=== PATIENT | male | born 1965 | race Caucasian/White ===

== ENCOUNTER → 2016-12-16 | Outpatient (CLI) | payer BC ==
[~2016-12-16] MED LIST: ACCUPRIL; AGM875T PO; ATOR80TA76 PO; HYDR-3812 PO; INSULIN PUMP; LEVO50TA6 PO; LEVOTHYROXINE; PRAVACHOL; QUIN40TA PO; TRAZ100T92 PO; VENL150C PO; VIT D
--- OUTSIDE RECORDS SUMMARY | 2016-12-16 14:24 | XMS REPORT | Continuity of Care Document ---
Author Author [facility] Organization [facility] Address Unknown Phone Unavailable Care Team Providers Care Reference Assistant Name Role Phone FRANKIE ALBRIGHT DO PCP Insurance Providers Payer Name Policy Number Subscriber Name Relationship [employer] [id number] Lebron Hoyt Self / Same As Patient Advance Directives Directive Response Recorded Date/Time Advance Directives No 10/07/16 12:30pm Health Care Power of Film Sound Engineer No 10/07/16 12:30pm Organ Donor Yes 10/07/16 12:30pm Resuscitation Status Full Code 10/07/16 12:30pm Problems No problem information available. Medications Current Home Medications Medication Dose Units Route Directions Days/Qty Instructions Start Date [Insulin Pump] 05/27/09 Atorvastatin Calcium 80 Mg 80 Mg Oral Daily 09/27/16 Quinapril Hcl 40 Mg 40 Mg Oral Daily 09/27/16 Levothyroxine Sodium 50 Mcg 50 Mcg Oral Daily 09/27/16 Venlafaxine Hcl 150 Mg 150 Mg Oral Daily 09/27/16 Trazodone Hcl 100 Mg 200 Mg Oral Bedtime take 2 (100mg) tabs 09/27/16 Hydrocodone/Acetaminophen 1 Each 1-2 Tab Oral 4-6HR as needed for Pain 20 10/07/16 Past Home Medications Medication Directions Ordered Status Pravachol , 05/27/09 Discontinued Accupril , 05/27/09 Discontinued Levothyroxine , 05/27/09 Discontinued [Vit D Supp] , 05/27/09 Discontinued Amoxicillin/Clavulanate Potassium 1 Tab Tablet, 1 Tab Oral Twice A Day Discontinued Social History Social History Problem Response Recorded Date/Time Alcohol Use Denies Use 10/07/2016 12:30pm Recreational Drug Use No 10/07/2016 12:30pm Recent Foreign Travel No 10/07/2016 12:26pm Recent Infectious Disease Exposure No 10/07/2016 12:26pm Smoking Status Never a Smoker 10/07/2016 12:30pm Recent Hopitalizations No 10/07/2016 12:30pm Query Response Start Date Stop Date Smoking Status Never a Smoker Hospital Discharge Instructions Patient Instructions Physician Instructions New, Converted or Re-Newed RX: RX on Chart Plan of Care/Instructions/FU: dressings off in 48 hours. Follow-up when necessary.. No stitches to be removed. Activity as Tolerated: Yes Discharge Diet: ADA Diet Care Plan Patient Instructions:: dressings off in 48 hours. Follow-up when necessary.. No stitches to beremoved. Plan of Care Discharge Date 10/07/16 1:25pm Instructions/Education Provided SEBACEOUS CYST Surgical Wound (DC) Prescriptions See Medication Section Functional Status No functional status results. Allergies, Adverse Reactions, Alerts Allergen Type Severity Reaction Status Last Updated NKANo Known Allergies Allergy Mild Active 05/27/09 Immunizations No immunization records. Vital Signs Acute Vital Signs Vital Response Date/Time Temperature (Fahrenheit) 97.8 degrees F (97.6 - 99.5) 10/07/2016 1:25pm Temperature (Calculated Celsius) 36.69870 degrees C (36.4 - 37.5) 10/07/2016 1:05pm Temperature Source Temporal 10/07/2016 1:25pm Pulse Rate (adult) 81 bpm (60 - 90) 10/07/2016 1:25pm Respiratory Rate 18 bpm (12 - 24) 10/07/2016 1:25pm O2 Sat by Pulse Oximetry 97 % (88 - 100) 10/07/2016 1:25pm Blood Pressure 157/99 mm Hg 10/07/2016 1:25pm Pain Numeric Pain Scale 0-No Pain 10/07/2016 1:25pm Pain Intensity 0 10/07/2016 1:05pm Height (Feet) 6 feet 10/07/2016 12:32pm Height (Inches) 1.00 inches 10/07/2016 12:32pm Height (Calculated Centimeters) 185.621021 cm 10/07/2016 12:32pm Weight (Pounds) 245 pounds 10/07/2016 12:32pm Weight (Ounces) 6.0 oz 10/07/2016 12:32pm Weight (Calculated Grams) 787322.23 gm 10/07/2016 12:32pm Weight (Calculated Kilograms) 111.607960 kilograms 10/07/2016 12:32pm Calculated BMI 32.4 10/07/2016 12:32pm Results Pending Laboratory Results Test Name Collection Date/Time Procedures Procedure Status Date Provider(s) Excision of epidermal inclusion cyst Active 10/07/16 LINH ZURITA MD Encounters Encounter Location Arrival/Admit Date Discharge/Depart Date Attending Provider Departed [facility] 10/07/16 11:56am 10/07/16 1:25pm LINH ZURITA MD Departed Clinic [facility] 09/27/16 5:51am 09/27/16 12: 42pm LINH ZURITA MD
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
== END ==
LOC: RAD 14:20
PROVIDERS: ATTEND Chiropractor
DX: M51.36 Other intervertebral disc degeneration, lumbar region (principal)
CPT/HCPCS: 72100

== ENCOUNTER → 2019-03-22 | Outpatient (CLI) | payer BC ==
[~2019-03-22] MED LIST changes: +ACHD5005 PO; -HYDR-3812 PO; +TRAZ-190 PO; -TRAZ100T92 PO
--- NOTE | 2019-03-22 17:21 | Diagnostic Imaging Report ---
INDICATION: Low back pain. EXAMINATION: AP view of the pelvis and two views of each hip were obtained. FINDINGS: Pelvic ring is intact. Hips are symmetric. Joint spaces are well maintained. Articular surfaces are smooth. IMPRESSION: Negative pelvis and bilateral hips. Dictated by: Dictated on workstation # [id number]
--- NOTE | 2019-03-22 17:29 | Diagnostic Imaging Report ---
INDICATION: Back and hip pain. FINDINGS: Lumbar statures are normal. No fracture. Disc spaces are preserved. No acute endplate irregularity. Asymmetric transitional anatomy at the S1 segment developmental and chronic. IMPRESSION: 1. Stable lumbar spine films with no acute finding. 2. Not mentioned above, there are arthritic changes to the bilateral hips appearing unchanged. Dictated by: Dictated on workstation # [id number]
== END ==
LOC: RAD 13:58
PROVIDERS: ATTEND Chiropractor
DX: M16.0 Bilateral primary osteoarthritis of hip (principal); M54.5 Low back pain
CPT/HCPCS: 72100; 73523

== ENCOUNTER 2020-03-23 17:33 | Emergency (ER) | payer BC ==
[~2020-03-23] VITALS: Ht 185.4 cm; Wt 114.7 kg
[~2020-03-23 17:33] MED LIST changes: -TRAZ-190 PO; +TRAZ-227 PO
[2020-03-23] MEDS ORDERED: RX-HYDROCODONE/APAP 5/325 MG #4 TAB PK PO PRN (17:45)
[2020-03-23] MEDS ORDERED: TETANUS,DIPTH,PERTUSS P/F (BOOSTRIX) 0.5 ML VIAL IM ONE (17:45)
[2020-03-23] MEDS ORDERED: cefTRIAXone 1,000 MG/2.86 ml vial (IM ONLY) IM SCH (17:45)
[2020-03-23] MEDS ORDERED: LIDOCAINE 1% INJ 20 ML 20 ML VIAL INJ ONE ×2 (17:45)
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
[2020-03-23] MEDS ORDERED: CEPH-507 PO (18:00)
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
[2020-03-23] MEDS ORDERED: HYDR-83 PO (18:46)
[2020-03-23 18:52] VITALS: BP 147/91
== END 2020-03-23 18:52 | disposition home or self-care (01) ==
LOC: EDUNIT# 17:33 → ER 17:34
DX: S92.334A Nondisplaced fracture of third metatarsal bone, right foot, initial encounter for closed fracture (principal); S92.324A Nondisplaced fracture of second metatarsal bone, right foot, initial encounter for closed fracture; S91.311A Laceration without foreign body, right foot, initial encounter; I10 Essential (primary) hypertension; E11.9 Type 2 diabetes mellitus without complications; F32.9 Major depressive disorder, single episode, unspecified; E03.9 Hypothyroidism, unspecified; Z23 Encounter for immunization; W20.8XXA Other cause of strike by thrown, projected or falling object, initial encounter
CPT/HCPCS: 12042; 73630; 90715

== ENCOUNTER 2020-04-03 15:31 | Emergency (ER) | payer BC ==
[~2020-04-03 15:31] MED LIST changes: +CEPH-507 PO; +HYDR-83 PO
[2020-04-03] MEDS ORDERED: AMOX-358 PO ×2 (15:45→15:50)
--- NOTE | 2020-04-03 15:46 | ED Suture Removal/Wound Check ---
Suture/Wound Re-check General Appearance: WD/WN, no apparent distress Skin Exam: normal color, warm/dry Comments There is some redness extending about 3 cm laceration. There is a small area of necrotic tissue about dime size or smaller. I'll give him Augmentin for a couple more days. Physical Exam Vital Signs Capillary Refill : General Appearance: WD/WN, no apparent distress Neck: non-tender, full range of motion Respiratory: normal breath sounds, no respiratory distress, no accessory muscle use Neurologic/Psychiatric: alert, normal mood/affect Skin: normal color, warm/dry Skin Problem Character: other Departure Communication (Admissions) Sutures were removed by me Impression Primary Impression: Cellulitis Qualified Codes: L03.116 - Cellulitis of left lower limb Additional Impression: Visit for wound care Disposition: HOME, SELF-CARE Condition: Stable Departure-Patient Inst. Decision time for Depature: 15:44 Referrals: JOSUE MARTINEZ MD,VINCENT Alcaraz MD Patient Instructions: SUTURE CHECK-NO COMPLICATION, Cellulitis (Skin Infection), Adult (DC) Add. Discharge Instructions: 1. Antibiotics as directed 2. Return to ER for any concerns 3. Follow-up with orthopedics as previously instructed. All discharge instructions reviewed with patient and/or family. Voiced understanding. Scripts Amoxicillin/Potassium Clav (Augmentin 875-125 Tablet) 1 Each Tablet 1 EACH PO BID, #10 TAB 0 Refills Prov: RAMAN HENDRIX APRN 04/03/20 RAMAN HENDRIX APRN April 03, 2020 15:45
[2020-04-03 15:49] VITALS: BP 136/79
--- OUTSIDE RECORDS SUMMARY | 2020-04-03 16:40 | XMS REPORT | CCD ---
Author Author [address] Organization [facility] er Address Unknown Phone Unavailable Care Team Providers Care Brand Analyst Name Role Phone FRANKIE ALBRIGHT DO Carolyn PP [phone] CHARLIE TURNER, DR. Desmond ROBBINS CP [phone] REFERRING MD, NO RP Unavailable Results HEMATOLOGY Most recent to oldest [Reference Range]: 1 2 3 WBC [4.0-11.0 x10'3/microL] 7.1 x10'3/microL (12/22/2011 20:10:00) RBC [4.50-6.50 x10'6/microL] 5.17 x10'6/microL (12/22/2011 20:10:00) Hgb [13.5-18.0 g/dL] 15.8 g/dL (12/22/2011 20:10:00) Hct [40-52 %] 46 % (12/22/2011 20:10:00) Platelet [140-400 x10'3/microL] 291 x10'3/microL (12/22/2011 20:10:00) MCV [81-99 fL] 89 fL (12/22/2011 20:10:00) MCH [27-34 pg] 31 pg (12/22/2011 20:10:00) MCHC [32-36 g/dL] 35 g/dL (12/22/2011 20:10:00) RDW [<=14.5 %] 13.8 % (12/22/2011 20:10:00) MPV [6.5-10.4 fL] 8.2 fL (12/22/2011 20:10:00) Neutrophils % [44-76 %] 64 % (12/22/2011 20:10:00) Lymphocytes % [13-43 %] 26 % (12/22/2011 20:10:00) Monocytes % [0-13 %] 7 % (12/22/2011 20:10:00) Eosinophils % [0-7 %] 1 % (12/22/2011 20:10:00) Basophils % [0-3 %] 3 % (12/22/2011 20:10:00) Neutrophils Abs [1.4-7.2 x10'3/microL] 4.6 x10'3/micro L (12/22/2011 20:10:00) Lymphocytes Abs [1.2-3.4 x10'3/microL] 1.9 x10'3/micro L (12/22/2011 20:10:00) Monocytes Abs [0.1-0.6 x10'3/microL] 0.5 x10'3/microL (12/22/2011 20:10:00) Eosinophils Abs [0.0-0.5 x10'3/microL] 0.0 x10'3/micro L (12/22/2011 20:10:00) Basophils Abs [0.0-0.2 x10'3/microL] 0.2 x10'3/microL (12/22/2011 20:10:00) CHEMISTRY Most recent to oldest [Reference Range]: 1 2 3 Sodium [136-145 mmol/L] 134 mmol/L *LOW* (12/22/2011 20:10:00) Potassium [3.5-5.1 mmol/L] 4.4 mmol/L (12/22/2011 20:10:00) Chloride [98-107 mmol/L] 98 mmol/L (12/22/2011 20:10:00) CO2 [22-29 mmol/L] 22 mmol/L (12/22/2011 20:10:00) AGAP [3-19 mmol/L] 14 mmol/L (12/22/2011 20:10:00) Glucose [70-100 mg/dL] 350 mg/dL *HI* (12/22/2011 20:10:00) Glucose Level (POC) [70-100 mg/dL] 172 mg/dL 1 *HI* (12/29/2011 11:11:00) 134 mg/dL 2 *HI* (12/29/2011 06:17:00) 157 mg/dL 3 *HI* (12/28/2011 21:02:00) BUN [8-20 mg/dL] 24 mg/dL *HI* (12/22/2011 20:10:00) Creatinine [0.7-1.2 mg/dL] 1.2 mg/dL (12/22/2011 20:10:00) Calcium [8.6-10.2 mg/dL] 9.3 mg/dL (12/22/2011 20:10:00) GFR (MDRD) 67.1 mL/min/1.73 m2 4 *NA* (12/22/2011 20:10:00) Est CrCL (CG) 86.5 mL/min 5 (12/22/2011 20:10:00) Albumin Level [3.5-5.2 g/dL] 4.2 g/dL (12/22/2011 20:10:00) Total Protein [6.6-8.7 g/dL] 7.3 g/dL (12/22/2011 20:10:00) Hgb A1c [4.4-6.0 %] 9.1 % *HI* (12/22/2011 20:10:00) Estimated Average Glucose 214 mg/dL *NA* (12/22/2011 20:10:00) Alk Phos [35-105 Inter. Units/L] 113 Inter. Units/L *HI* (12/22/2011 20:10:00) AST [0-40 Units/L] 11 Units/L (12/22/2011 20:10:00) ALT [0-41 Inter. Units/L] 16 Inter. Units/L (12/22/2011 20:10:00) Bili Total [0.0-1.2 mg/dL] 0.7 mg/dL (12/22/2011 20:10:00) 1Interpretive Data: Interpretative Data: 100-125 = Impaired Fasting Glucose > or = 126 = Provisional diagnosis of diabetes. 2Interpretive Data: Interpretative Data: 100-125 = Impaired Fasting Glucose > or = 126 = Provisional diagnosis of diabetes. 3Interpretive Data: Interpretative Data: 100-125 = Impaired Fasting Glucose > or = 126 = Provisional diagnosis of diabetes. 4Result Comment: GFR calculated based on MDRD abbreviated formula. Age(years) Average GFR 20-29 116 ml/min/1.73 m2 30-39 107 ml/min/1.73 m2 40-49 99 ml/min/1.73 m2 50-59 93 ml/min/1.73 m2 60-69 85 ml/min/1.73 m2 70+ 75 ml/min/1.73 m2 Acceptable GFR =>60 ml/min/1.73 m2 Chronic Kidney Disease <60 ml/min/1.73 m2 Kidney Failure <15 ml/min/1.73 m2 5Result Comment: Estimated Creatinine Clearance calculated based on the Cockcroft-Gault formula. ENDOCRINE/TUMOR MARKER Most recent to oldest [Reference Range]: 1 2 3 TSH [0.27-4.20 microInter.Units/mL] 3.31 microInter.Un its/mL (12/22/2011 20:10:00) TOXICOLOGY/THER DRUG Most recent to oldest [Reference Range]: 1 2 3 Alcohol Blood [<=10.1 mg/dL] <10.1 mg/dL 6 (12/22/2011 20:10:00) 6Interpretive Data: 50-100mg/dl Flushing, slowing of reflexes, impaired visual acuity. >100 mg/dl Depression of FORENSIC STRUCTURAL ENGINEER >400 mg/dl Fatalities reported. URINE Most recent to oldest [Reference Range]: 1 2 3 UA Color Yellow (12/22/2011 19:50:00) UA pH [5.0-8.0] 5.0 (12/22/2011 19:50:00) UA Spec Grav [1.001-1.030] >=1.030 (12/22/2011 19:50:00) U Sp Grav [1.001-1.030] >=1.030 (12/22/2011 19:50:00) UA Glucose [Negative mg/dL] >=1000 mg/dL *ABN* (12/22/2011 19:50:00) UA Bili [Negative] Negative (12/22/2011 19:50:00) UA Ketones [Negative mg/dL] >=80 mg/dL *ABN* (12/22/2011 19:50:00) UA Blood [Negative] Negative (12/22/2011 19:50:00) UA Protein [Negative mg/dL] Negative mg/dL (12/22/2011 19:50:00) UA Nitrite [Negative] Negative (12/22/2011 19:50:00) UA Leuk Est [Negative] Negative (12/22/2011 19:50:00) UA Urobilinogen [0.2-1.0 EU per dL] 0.2 EU per dL (12/22/2011 19:50:00) UA Spec Type Clean Catch (12/22/2011 19:50:00) Microscopic? No 7 (12/22/2011 19:50:00) Culture? No (12/22/2011 19:50:00) Ur Creat [39.0-259.0 mg/dL] 97.5 mg/dL (12/22/2011 19:50:00) U Amph Scrn [Negative] Negative 8 (12/22/2011 19:50:00) U Debbie Scrn [Negative] Negative 9 (12/22/2011 19:50:00) U Benzodia Scrn [Negative] Negative 10 (12/22/2011 19:50:00) U Cocaine Scrn [Negative] Negative 11 (12/22/2011 19:50:00) U Opiate Scrn [Negative] Negative 12 (12/22/2011 19:50:00) U PCP Screen [Negative] Negative 13 (12/22/2011 19:50:00) U Cannab Scrn [Negative] Negative 14 (12/22/2011 19:50:00) 7Interpretive Data: When result = No, Microscopic is not indicated. Specimen is held for 3 days. Call [phone] if further testing is needed. 8Interpretive Data: Screening Cutoff: 1000 ng/mL Drug screening results are reported as presumptive only and do not include confi rmation testing. These drug testing results are to be used for medical or drug t reatment/rehabilitation purposes only. 9Interpretive Data: Screening Cutoff: 200 ng/mL Drug screening results are reported as presumptive only and do not include confi rmation testing. These drug testing results are to be used for medical or drug t reatment/rehabilitation purposes only. 10Interpretive Data: Screening Cutoff: 200 ng/mL Drug screening results are reported as presumptive only and do not include confi rmation testing. These drug testing results are to be used for medical or drug t reatment/rehabilitation purposes only. 11Interpretive Data: Screening Cutoff: 300 ng/mL Drug screening results are reported as presumptive only and do not include confi rmation testing. These drug testing results are to be used for medical or drug t reatment/rehabilitation purposes only. 12Interpretive Data: Screening Cutoff: 300 ng/mL Drug screening results are reported as presumptive only and do not include confi rmation testing. These drug testing results are to be used for medical or drug t reatment/rehabilitation purposes only. 13Interpretive Data: Screening Cutoff: 25 ng/mL Drug screening results are reported as presumptive only and do not include confi rmation testing. These drug testing results are to be used for medical or drug t reatment/rehabilitation purposes only. 14Interpretive Data: Screening Cutoff: 20 ng/mL Drug screening results are reported as presumptive only and do not include confi rmation testing. These drug testing results are to be used for medical or drug t reatment/rehabilitation purposes only.
--- OUTSIDE RECORDS SUMMARY | 2020-04-03 16:40 | XMS REPORT | Encounter Summary ---
Author Author [facility] Organization [facility] Address Unknown Phone Unavailable Care Team Providers Care Granulator Machine Operator Name Role Phone PCP Unavailable Encounter Details Care Team Description Date Type Department Melani John MD [address] [place] [address] [phone] Major depressive disorder, recurrent epi sode, severe, without mention of psychotic behavior 12/22/2011 [facility] Encounter [address] [id number] Social History Date Tobacco Use Types Packs/Day Years Used Never Assessed Sex Assigned at Date Recorded Not on file Industry Job Start Date Occupation Not on file Not on file Not on file Travel End Travel History Travel Start No recent travel history available. documented as of this encounter Discharge Summaries * Melani John - 01/24/2014 10:34 PM SUSPENDER MAKER REPORT Name: LEBRON HOYT Date of : 1965 Attending Physician: MELANI JOHN Date of Admission: 12/22/2011 Date of Discharge: 12/22/2011 DIAGNOSES: [place] I: Major depressive disorder, recurrent, severe. Anxiety disorder, not otherwise specified. [place] II: Deferred. [place] III: History of diabetes. Hypertension. Hyperlipidemia. [place] IV: Severe. [place] V: GAF = 35. BRIEF HISTORY AND HOSPITAL COURSE: This 46-year-old white male who admitted after a suicidal attempt. He reported being depressed for the last 7 years, ever since he discovered the body of his mother who committed suicide 7 years ago. His depression has gotten worse during the last few days. He and his have been having marital problems. The patient thinks that it is because of his inability to perform sexually. The patient has tried to get help in that regard but has been unsuccessful. The patient was upset that his went to [place] to see her ex-roommate who was recently . The patient said that he was worrying excessively and thought that she was cheating on him. The patient said that she was also planning to go to [place] and recently told him that they will continue to stay for the sake of the kids, but she wanted to see other and wanting to have her life. The patient said that was making him stressed out. He was complaining of decreased sleep and appetite, feeling of helplessness and increased anxiety. After an argument with the , he left the house and was in his car and did overdose on his insulin. Finally, the authorities were able to convince him to go to the hospital. The patient was brought here for further stabilization. The patient and his were not happy with the management of his diabetes. We did offer him various options. They wanted to go to [facility], but they did not have any beds available. The patient's was insistent that she and her [id number] can transport the patient on their own to the hospital. The patient was given the option to see the church musician, but they decided to leave AGAINST MEDICAL ADVICE. They were going to take the patient directly to [facility] emergency room and will hope that a bed will become available. DISCHARGE MEDICATIONS: Electronically generated summary for 1. ACCUPRIL ORAL 40 mg Daily AM 2. HUMALOG SUBQ via insulin pump 3. LEVOXYL ORAL 50 mcg Daily AM 4. 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 The patient had a recent suicide attempt by injecting a high dose of insulin into his insulin pump. The patient has had a long-standing history of depression. Currently, he admitted to suicidal ideations, but he feels better over the last 24 hours. He denies headaches, visual disturbances, nausea, or vomiting, chest pain, shortness of breath, palpitation, dysarthria, dysphagia, weakness, numbness, or paresthesia. The patient had a recent ophthalmology evaluation and revealed no evidence of retinopathy. PAST MEDICAL HISTORY: Significant for depression, suicidal ideations, insulin-dependent diabetes mellitus, hyperlipidemia, hypertension, and hypothyroidism. SOCIAL HISTORY: The patient is , but he has a difficult relationship with his . He has 5 children. 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 He denies smoking, alcohol, drinking or illicit drug use. CURRENT HOME MEDICATIONS: 1. Accupril 40 mg daily. 2. Humalog subcutaneous insulin pump. 3. Levoxyl 50 mcg a.m. 4. Pravastatin 80 mg daily. ALLERGIES: NO KNOWN DRUG ALLERGIES. PHYSICAL EXAMINATION: GENERAL: Well-developed, well-nourished white male, not in acute distress. He weighs 160 pounds, the height is 73 inches. VITAL SIGNS: Blood pressure 139/101, respiratory rate 22, pulse is 124, oxygen saturation 98%, and temperature is 98. HEENT: Normocephalic, atraumatic. Otherwise, unremarkable. NECK: Supple. Negative for carotid bruit, lymphadenopathy, or thyromegaly. LUNGS: Clear to auscultation and percussion. CARDIOVASCULAR: Regular rate and rhythm. Normal S1, S2. There is no S3, S4, or murmurs. ABDOMEN: Soft. Bowel sounds are positive. EXTREMITIES: Negative for cyanosis, clubbing, or pitting edema. NEUROLOGICAL EXAMINATION: MENTAL STATUS: The patient is alert and oriented x3. Speech is fluent. There is no language dysfunction. Memory is intact. Judgment and abstracting thinking are normal. The patient denies hallucination or delusion. CRANIAL NERVES: Visual lockwood are full. The pupils are reactive to light and accommodation. Extraocular movements are intact. There is no nystagmus. There are no facial motor or sensory deficits. Hearing is intact bilaterally. The palate is elevated symmetrically. Sternocleidomastoid muscles are powerful bilaterally. The patient shrugs his shoulders symmetrically and protrudes his tongue in the midline without fasciculation or atrophy. MOTOR EXAMINATION: No focal muscle bulk wasting. The tone is normal. The strength is 5/5 throughout. SENSORY EXAMINATION: Revealed normal pinprick, light touch, or vibratory and position senses. DEEP TENDON REFLEXES: Are symmetric and active without pathologic responses. GAIT AND COORDINATIONS: Are normal. LABORATORY DATA: CBC revealed white blood cells of 8.3, hemoglobin 17, hematocrit 49, platelet count 279,000. Chemistry revealed a sodium 138, potassium 4.6, chloride 102, CO2 of 25, BUN 15, creatinine 1.2, glucose 188, calcium 8.8. Urine drug screen is negative. Urinalysis is negative for urinary tract infections. IMPRESSION: 1. Depression. 2. Status post suicidal ideation by injection of high dose of insulin. 3. Suicidal ideations. 4. Hypertension. 5. Diabetes mellitus, type I, on insulin pump. 6. Hyperlipidemia. 7. Hypothyroidism. 8. Trigger fingers. RECOMMENDATIONS: Continue with current psychiatric care. Liss Clinton MD cc: Nikhil Pepper DO, [facility] Primary Care Physician ENDER MAKER documented in this encounter Miscellaneous Notes * Psychiatric Evaluation - Melani John - 01/24/2014 10:48 PM SUSPENDER MAKER REPORT Name: LEBRON HOYT Date of : 1965 Attending Physician: MELANI JOHN Date of Admission: 12/22/2011 IDENTIFICATION DATA: The patient is a 46-year-old white male who is currently living in [place], [place] with his and children. 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 CHIEF COMPLAINT: Suicidal attempt. HISTORY OF PRESENT ILLNESS: The patient reports that he has been depressed for the last 7 years, ever since he discovered the body of his mother who committed suicide 7 years ago. Patient's depression has increased during the last few days. The patient and his have been having marital problems. The patient thinks that it is because of his inability to perform sexually. He has tried to get help in that regard, but has been unsuccessful. The patient says the recently went to [place] to see her ex-classmate who was recently . The patient said he was worrying excessively and thought that she was cheating on him. She also has been planning to go to [place] and, according to him, told him recently that they will continue to stay for the sake of the kids, but she wants to see other people and wants to have her life. The patient said that is making him stressed out. He is complaining of decreased sleep and appetite, feeling of helplessness and increased anxiety. After one argument with his , he left the house and was in his car and did overdose on insulin. He tried to talk to the dispatch clerk and reportedly the dispatch clerk called the police and different people who were looking for him. The patient then tried to elope and in the process, according to him, took another 50 units of insulin. He finally came out of the car and was hospitalized, medically stabilized, and then sent here for further stabilization. PAST PSYCHIATRIC HISTORY: Patient reports that he took Lexapro, which made his depression worse, that was about 7 years ago soon after the of his mother. He took Effexor. His primary care physician told him that he took it for a year and half. Patient says that he does not remember the medication being effective. He has not taken any antidepressant for quite some time now. Patient denied any previous suicidal attempt. This is the first inpatient hospitalization. PAST MEDICAL HISTORY: Significant for diabetes, hypertension, and hyperlipidemia. FAMILY HISTORY: Significant for mother who killed herself as previously indicated. Two brothers he suspects are on an antidepressant. Maternal grandfather also committed suicide. SOCIAL HISTORY: The patient grew up in an intact family. His father when he was 14 years old. The patient is the youngest of four children. He has two brothers and a sister. Patient thought that his father neglected him and paid more attention to the older siblings. The patient denied being abused growing up. Patient has five children from his marriage, the youngest 8. The patient denied any problem with drugs or alcohol. Denied any legal problems. MENTAL STATUS EXAMINATION: A tall, well-built gentleman. He has good eye contact. Speech is normal. He is cooperative. He is alert and oriented to time, person, place, and situation. Short and remote memory is intact. No cognitive deficits are noted. He described his mood as being depressed with tearful affect. His thoughts are organized and goal directed. No overt delusions or hallucinations. He was admitted after attempting suicide. Denied any homicidal ideation. Insight and judgment is fair. He is of average intelligence as judged by use of language, level of comprehension. Vital signs, gait and station are steady. IMPRESSION: AXIS I: Major depressive disorder, recurrent, severe. Anxiety disorder, not otherwise specified. AXIS II: Deferred. AXIS III: Diabetes, hypertension, hyperlipidemia. AXIS IV: Severe. AXIS V: 25. RECOMMENDATIONS: The patient is being admitted to engage in individual and group therapy. We will start him on appropriate medication. Medication options were discussed with him. He will be followed for medical needs. Estimated length of stay 3 to 5 days. Melani John MD CC: Nikhil Pepper DO, [facility] Primary Care Physician ENDER MAKER documented in this encounter Plan of Treatment Not on filedocumented as of this encounter Procedures Comments Procedure Name Priority Date/Time Associated Diag nosis GLUCOSE POC Routine 12/22/2011 5:16 PM SUSPENDER MAKER GLUCOSE POC Routine 12/22/2011 3:07 PM SUSPENDER MAKER GLUCOSE POC Routine 12/22/2011 11:32 AM SUSPENDER MAKER GLUCOSE POC Routine 12/22/2011 10:23 AM SUSPENDER MAKER THYROID STIMULATING Routine 12/22/2011 HORMONE 10:00 AM SUSPENDER MAKER GLUCOSE POC Routine 12/22/2011 6:46 AM SUSPENDER MAKER documented in this encounter Results * GLUCOSE POC (12/22/2011 5:16 PM SUSPENDER MAKER) Only the most recent of 5 results within the time period is included. Glucose POC 232 (H) 70 - 100 MG/DL SUNQUEST Specimen Blood Performing Organization Address [facility] Ph one Number [id number] [phone] SUNQUEST * Thyroid Stimulating Hormone (12/22/2011 10:00 AM SUSPENDER MAKER) Thyroid 1.96 0.47 - 4.68 UIU/ML SUNQUEST Stimulating Hormone Specimen Blood Performing Organization Address [facility] Ph one Number [id number] [phone] SUNQUEST documented in this encounter Visit Diagnoses Diagnosis Major depressive disorder, recurrent ep isode, severe, without mention of psychotic behavior documented in this encounter
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
--- OUTSIDE RECORDS SUMMARY | 2020-04-03 16:40 | XMS REPORT | Continuity of Care Document ---
Author Organization Unknown Address Unknown Phone Unavailable Allergies Active Description Code Type Severity Reaction Onset Reported/Identified Relationship to Patient Clinical Status Yes NKANo Known Allergies NKA Miscellaneous Allergy Mild N/A 05/27/2009 Medications There is no data. Problems Date Dx Coded Attending Type Code Diagnosis Diagnosed By 12/21/2011 Ot 244.9 HYPO THYROIDISM NOS 12/21/2011 Ot 250.01 ROXY B KERVIN WO COMPL, TYPE I [JUVENILE TYP 12/21/2011 Ot 300.00 ANX IETY STATE NOS 12/21/2011 Ot 311 DEPRES SIVE DISORDER NEC 12/21/2011 Ot 791.0 PROT EINURIA 12/21/2011 Ot 962.3 POIS ON- INSULIN/ANTIDIAB 12/21/2011 Ot E950.4 AMELIA CIDE- DRUG/MEDICIN NEC 12/21/2011 Ot V58.67 CINTHIA G-TERM (CURRENT) USE OF INSULIN 12/21/2011 Ot V58.69 OTH MED,LT,CURRENT USE 09/28/2016 YUDITH TURNER, LINH Hernandez Ot L72.9 FOLLICULAR CYST OF THE SKIN AND SUBCUTAN 09/28/2016 LINH ZURITA MD Ot Z01.818 ENCOUNTER FOR OTHER PREPROCEDURAL EXAMIN 10/07/2016 LINH ZURITA MD Ot E11.9 TYPE 2 DIABETES MELLITUS WITHOUT COMPLIC 10/07/2016 LINH ZURITA MD Ot L72.3 SEBACEOUS CYST 10/07/2016 LINH ZURITA MD Ot 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 10/10/2016 LINH ZURITA MD Ot E11.9 TYPE 2 DIABETES MELLITUS WITHOUT COMPLIC 10/10/2016 LINH ZURITA MD Ot L72.3 SEBACEOUS CYST 10/10/2016 LINH ZURITA MD Ot 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 12/19/2016 HERMES MYERS DC Ot M51.3 6 OTHER INTERVERTEBRAL DISC DEGENERATION, 12/22/2016 MYERS DC, HERMES Ot M51.3 6 OTHER INTERVERTEBRAL DISC DEGENERATION, 01/19/2017 LUCIA DC, HERMES Ot M51.3 6 OTHER INTERVERTEBRAL DISC DEGENERATION, 03/12/2018 MYERS DC, HERMES Ot M51.3 6 OTHER INTERVERTEBRAL DISC DEGENERATION, 03/12/2018 MYERS DC, HERMES Ot M51.3 6 OTHER INTERVERTEBRAL DISC DEGENERATION, 03/12/2018 MYERS DC, HERMES Ot M51.3 6 OTHER INTERVERTEBRAL DISC DEGENERATION, 03/24/2019 LUCIA NEWSOME, HERMES Ot M16.0 BILATERAL PRIMARY OSTEOARTHRITIS OF HIP 03/24/2019 MYERS DC, HERMES Ot M54.5 LOW BACK PAIN 04/16/2019 LUCIA NEWSOME, HERMES Ot M16.0 BILATERAL PRIMARY OSTEOARTHRITIS OF HIP 04/16/2019 MYERS JEROD, HERMES Ot M54.5 LOW BACK PAIN 03/25/2020 RAMAN HENDRIX APRN Ot E03 .9 HYPOTHYROIDISM, UNSPECIFIED 03/25/2020 RAMAN HENDRIX APRN Ot E11 .9 TYPE 2 DIABETES MELLITUS WITHOUT COMPLIC 03/25/2020 RAMAN HENDRIX APRN Ot F32 .9 MAJOR DEPRESSIVE DISORDER, SINGLE EPISOD 03/25/2020 RAMAN HENDRIX APRN Ot I10 ESSENTIAL (PRIMARY) HYPERTENSION 03/25/2020 RAMAN HENDRIX APRN Ot M79.671 PAIN IN RIGHT FOOT 03/25/2020 RAMAN HENDRIX APRN Ot S91.311A LACERATION WITHOUT FOREIGN BODY, RIGHT F 03/25/2020 RAMAN HENDRIX APRN Ot S92.324A NONDISP FX OF SECOND METATARSAL BONE, RI 03/25/2020 RAMAN HENDRIX APRN Ot S92.334A NONDISP FX OF THIRD METATARSAL BONE, RIG 03/25/2020 RAMAN HENDRIX APRN Ot W20.8XXA OTH CAUSE OF STRIKE BY THROWN, PROJECTED 03/25/2020 RMAAN HENDRIX APRN Ot Z23 ENCOUNTER FOR IMMUNIZATION Procedures There is no data. Results Test Result Range Capillary blood glucose measurement by g lucometer (mass/volume) - 10/07/16 12:06 Capillary blood glucose measurement by glucometer (mas s/volume) 165 mg/dL 70-110 Methicillin resistant Staphylococcus aur eus (MRSA) screening culture - 10/07/16 12:10 Methicillin resistant Staphylococcus aureus (MRSA) scr eening culture NEG NRG Encounters ACCT No. Visit Date/Time Discharge Status Pt. Type Provider Facility Loc./Unit Complaint [id number] 03/23/2020 17:34:00 020 18:52:00 DIS Outpatient RAMAN HENDRIX APRN Via [facility] ER R FOOT PAIN [id number] 03/22/2019 13:58:00 019 23:59:59 CLS Outpatient HERMES MYERS DC Via [facility] RAD LOW BACK PAIN [id number] 12/16/2016 14:20:00 017 23:59:59 CLS Outpatient HERMES MYERS DC Via [facility] RAD LUMBAR PAIN [id number] 10/07/2016 11:56:00 13:25:00 DIS Outpatient LINH ZURITA MD Via [facility] SDC CYST LEFT SCAPULA FLORECITA ON [id number] 09/27/2016 05:51:00 12:42:00 DIS Outpatient LINH ZURITA MD Via [facility] PREOP CYST LEFT SCAPULAR REG ION [id number] 12/19/2011 23:48:00 Document Registration
--- OUTSIDE RECORDS SUMMARY | 2020-04-03 16:40 | XMS REPORT | Clinical Summary ---
Author Author [facility] Organization [facility] Address Unknown Phone Unavailable Care Team Providers Care Costumer Assistant Name Role Phone PCP Unavailable Allergies Not on File Medications Not on file Active Problems Not on file Social History Date Tobacco Use Types Packs/Day Years Used Never Assessed Sex Assigned at Date Recorded Not on file Industry Job Start Date Occupation Not on file Not on file Not on file Travel End Travel History Travel Start No recent travel history available. Last Filed Vital Signs Not on file Plan of Treatment Not on file Results Not on filefrom Last 3 Months
--- OUTSIDE RECORDS SUMMARY | 2020-04-03 16:40 | XMS REPORT | Continuity of Care Document ---
Author Author [facility] [place] CORI RODGER [facility] [place] Address Unknown Phone Unavailable Care Team Providers Care Rotary Drum Tanner Name Role Phone [facility] Unavailable Unavailable Problems Problem Status Onset Date Classification Date Reported Comments Source Unspecified nonpsychotic mental disorder Active 12/22/2011 [facility] [place] DEPRESSIVE DISORDER, NOT ELSEWHERE CLASSIFIED Active 12/22/2011 [facility] [place] MAJOR DEPRESSIVE DISORDER, RECURRENT EPI SODE, SEVERE DEGREE, WITHOUT MENTION OF PSYCHOTIC BEHAVIOR Active [facility] [place] Diabetes mellitus without complication, type II or unspecified type, not stated as uncontrolled Active [facility] (Current) Use of Insulin [facility] [place] UNSPECIFIED HYPOTHYROIDISM Act lauren [facility] [place] Suicidal ideation Active [facility] [place] Medications No Data Provided for This Section Allergies, Adverse Reactions, Alerts No Known Medication Allergies Immunizations No Data Provided for This Section Results Order Name Results Value Reference Range Date Interpretation Comments Source CHEMISTRY Glucose Level (POC) 172 mg /dL 70 - 100 12/29/2011 [place] <sup>1</sup>Interpretive Data: Interpret ative Data: 100-125 = Impaired Fasting Glucose
> or = 126 = Provisional diagnosis of diabetes.
[facility] CHEMISTRY Glucose Level (POC) 134 mg /dL 70 - 100 12/29/2011 [place] <sup>2</sup>Interpretive Data: Interpret ative Data: 100-125 = Impaired Fasting Glucose
> or = 126 = Provisional diagnosis of diabetes.
[facility] CHEMISTRY Glucose Level (POC) 157 mg /dL 70 - 100 12/29/2011 [place] <sup>3</sup>Interpretive Data: Interpret ative Data: 100-125 = Impaired Fasting Glucose
> or = 126 = Provisional diagnosis of diabetes.
[facility] CHEMISTRY GFR (MDRD) 67.1 m L/min/1.73 m2 12/23/2011 NA <sup>4</sup>Result Comment: GFR calculat ed based on MDRD abbreviated formula.

Age(years) Average GFR
20-29 116 ml/min/1.73 m2
30-39 107 ml/min/1.73 m2
40-49 99 ml/min/1.73 m2
50-59 93 ml/min/1.73 m2
60-69 85 ml/min/1.73 m2
70+ 75 ml/min/1.73 m2

Acceptable GFR =>60 ml/min/1.73 m2
Chronic Kidney Disease <60 ml/min/1.73 m2
Kidney Failure <15 ml/min/1.[address] [facility] CHEMISTRY Est CrCL (CG) 86.5 m L/min 12/23/2011 <sup>5</sup>Result Comment: Estimated Cr eatinine Clearance calculated based on the Cockcroft-Gault formula. [facility] CHEMISTRY Hgb A1c 9.1 % 4.4 - 6.0 12/23/2011 [facility] CHEMISTRY Estimated Average Glucose 214 mg/dL 12/23/2011 NA [facility] CHEMISTRY Total Protein 7.3 g/ dL 6.6 - 8.7 12/23/2011 [facility] CHEMISTRY Creatinine 1.2 mg/dL 0.7 - 1.2 12/23/2011 [facility] CHEMISTRY Albumin Level 4.2 g/ dL 3.5 - 5.2 12/23/2011 [facility] CHEMISTRY Calcium 9.3 mg/dL 8.6 - 10.2 12/23/2011 [facility] CHEMISTRY ALT 16 Int er. Units/L 0 - 41 12/23/2011 [facility] CHEMISTRY AST 11 Units/L 0 - 40 12/23/2011 [facility] CHEMISTRY Alk Phos [address] Units/L 35 - 105 12/23/2011 [facility] CHEMISTRY Bili Total 0.7 mg/dL 0.0 - 1.2 12/23/2011 [facility] CHEMISTRY Glucose 350 mg/dL 70 - 100 12/23/2011 [facility] CHEMISTRY AGAP 14 mmol/L 3 - 19 12/23/2011 [facility] CHEMISTRY CO2 22 mmol/L 22 - 29 12/23/2011 [facility] CHEMISTRY Chloride 98 mmol/L 98 - 107 12/23/2011 [facility] CHEMISTRY Potassium 4.4 mmol/L 3.5 - 5.1 12/23/2011 [facility] CHEMISTRY BUN 24 mg/dL 8 - 20 12/23/2011 [facility] CHEMISTRY Sodium 134 mmol/L 136 - 145 12/23/2011 LOW [facility] ENDOCRINE/TUMOR MARKER TSH 3.31 microInter.Units/mL 0.27 - 4.20 12/23/2011 [facility] HEMATOLOGY Neutrophils Abs 4.6 x 10'3/microL 1.4 - 7.2 12/23/2011 [facility] HEMATOLOGY Lymphocytes Abs 1.9 x 10'3/microL 1.2 - 3.4 12/23/2011 [facility] HEMATOLOGY Basophils Abs 0.2 x 10'3/microL 0.0 - 0.2 12/23/2011 [facility] HEMATOLOGY Eosinophils Abs 0.0 x 10'3/microL 0.0 - 0.5 12/23/2011 [facility] HEMATOLOGY Monocytes Abs 0.5 x 10'3/microL 0.1 - 0.6 12/23/2011 [facility] HEMATOLOGY Basophils % 3 % 0 - 3 12/23/2011 [facility] HEMATOLOGY Monocytes % 7 % 0 - 13 12/23/2011 [facility] HEMATOLOGY Neutrophils % 64 % 44 - 76 12/23/2011 [facility] HEMATOLOGY Eosinophils % 1 % 0 - 7 12/23/2011 [facility] HEMATOLOGY Lymphocytes % 26 % 13 - 43 12/23/2011 [facility] HEMATOLOGY Hgb 15.8 g/dL 13.5 - 18.0 12/23/2011 [facility] HEMATOLOGY RBC 5.17 x10'6/microL 4.50 - 6.50 12/23/2011 [facility] HEMATOLOGY MCV 89 fL 81 - 99 12/23/2011 [facility] HEMATOLOGY Hct 46 % 40 - 52 12/23/2011 [facility] HEMATOLOGY WBC 7.1 x 10'3/microL 4.0 - 11.0 12/23/2011 [facility] HEMATOLOGY MCH 31 pg 27 - 34 12/23/2011 [facility] HEMATOLOGY MPV 8.2 fL 6.5 - 10.4 12/23/2011 [facility] HEMATOLOGY Platelet 291 x 10'3/microL 140 - 400 12/23/2011 [facility] HEMATOLOGY RDW 13.8 % <=14.5 12/23/2011 [facility] HEMATOLOGY MCHC 35 g/dL 32 - 36 12/23/2011 [facility] TOXICOLOGY/THER DRUG Alcohol Blood <10.1 mg/dL <=10.1 12/23/2011 <sup>6</sup>Interpretive Sha a: 50-100mg/dl Flushing, slowing of reflexes, impaired visual acuity.
>100 mg/dl Depression of CAREER DEVELOPMENT ENGINEER
>400 mg/dl Fatalities reported. [facility] URINE Microscopic? No <sup>7< /sup>
(12/22/2011 19:50:00) <sup> </sup> 12/23/2011 <sup>7</sup>Interpretive Data: When result = No, Microscopic is not indicated. Specimen is held for 3 days. Call [phone] if further testing is needed. [facility] URINE UA Nitrite Negative < br/>(12/22/2011 19:50:00) <sup> </sup> Negative 12/23/2011 [facility] URINE UA Protein Negative m g/dL
(12/22/2011 19:50:00) <sup> </sup> Negative 12/23/2011 [facility] URINE UA Leuk Est Negative < br/>(12/22/2011 19:50:00) <sup> </sup> Negative 12/23/2011 [facility] URINE UA Urobilinogen 0.2 EU per dL 0.2 - 1.0 12/23/2011 [facility] URINE Culture? No
(0 12/22/2011 19:50:00) <sup> </sup> 12/23/2011 [facility] URINE UA pH 5.0 5.0 - 8.0 12/23/2011 [facility] URINE UA Blood Negative < br/>(12/22/2011 19:50:00) <sup> </sup> Negative 12/23/2011 [facility] URINE UA Bili Negative < br/>(12/22/2011 19:50:00) <sup> </sup> Negative 12/23/2011 [facility] URINE UA Glucose >=1000 mg/ dL
*ABN*
(12/22/2011 19:50:00) <sup> </sup> Negative 12/23/[address] [facility] URINE UA Spec Type Clean Catc h
(12/22/2011 19:50:00) <sup> </sup> 12/23/2011 [facility] URINE UA Color Yellow
(12/22/2011 19:50:00) <sup> </sup> 12/23/2011 [facility] URINE UA Ketones >=80 mg/dL
*ABN*
(12/22/2011 19:50:00) <sup> </sup> Negative 12/23/[address] [facility] URINE UA Spec Grav >=1.030 <b r/>(12/22/2011 19:50:00) <sup> </sup> 1.001 - 1.030 12/23/2011 [facility] URINE U Sp Grav >=1.030 <b r/>(12/22/2011 19:50:00) <sup> </sup> 1.001 - 1.030 12/23/2011 [facility] URINE U PCP Screen Negative <sup>13</sup>
(12/22/2011 19:50:00) <sup> </sup> Negative 12/23/2011 <sup>13</sup>Interpretive Data: Screenin g Cutoff: 25 ng/mL

Drug screening results are reported as presumptive only and do not include confirmation testing. These drug testing results are to be used for medical or drug treatment/rehabilitation purposes only. [facility] URINE U Opiate Scrn Negative <sup>12</sup>
(12/22/2011 19:50:00) <sup> </sup> Negative 12/23/2011 <sup>12</sup>Interpretive Data: Screenin g Cutoff: 300 ng/mL

Drug screening results are reported as presumptive only and do not include confirmation testing. These drug testing results are to be used for medical or drug treatment/rehabilitation purposes only. [facility] URINE Ur Creat 97.5 mg/dL 39.0 - 259.0 12/23/2011 [facility] URINE U Amph Scrn Negative < sup>8</sup>
(12/22/2011 19:50:00) <sup> </sup> Negative 12/23/2011 <sup>8</sup>Interpretive Data: Screening Cutoff: 1000 ng/mL

Drug screening results are reported as presumptive only and do not include confirmation testing. These drug testing results are to be used for medical or drug treatment/rehabilitation purposes only. [facility] URINE U Debbie Scrn Negative < sup>9</sup>
(12/22/2011 19:50:00) <sup> </sup> Negative 12/23/2011 <sup>9</sup>Interpretive Data: Screening Cutoff: 200 ng/mL

Drug screening results are reported as presumptive only and do not include confirmation testing. These drug testing results are to be used for medical or drug treatment/rehabilitation purposes only. [facility] URINE U Benzodia Scrn Negative <sup>10</sup>
(12/22/2011 19:50:00) <sup> </sup> Negative 12/23/2011 <sup>10</sup>Interpretive Data: Screenin g Cutoff: 200 ng/mL

Drug screening results are reported as presumptive only and do not include confirmation testing. These drug testing results are to be used for medical or drug treatment/rehabilitation purposes only. [facility] URINE U Cannab Scrn Negative <sup>14</sup>
(12/22/2011 19:50:00) <sup> </sup> Negative 12/23/2011 <sup>14</sup>Interpretive Data: Screenin g Cutoff: 20 ng/mL

Drug screening results are reported as presumptive only and do not include confirmation testing. These drug testing results are to be used for medical or drug treatment/rehabilitation purposes only. [facility] URINE U Cocaine Scrn Negative <sup>11</sup>
(12/22/2011 19:50:00) <sup> </sup> Negative 12/23/2011 <sup>11</sup>Interpretive Data: Screenin g Cutoff: 300 ng/mL

Drug screening results are reported as presumptive only and do not include confirmation testing. These drug testing results are to be used for medical or drug treatment/rehabilitation purposes only. [facility] Pathology Reports No Data Provided for This Section Diagnostic Reports No Data Provided for This Section Consultation Notes No Data Provided for This Section Discharge Summaries No Data Provided for This Section History and Physicals No Data Provided for This Section Vital Signs No Data Provided for This Section Encounters Location Location Details Encounter Type Encounter Number Reason For Visit Attending Provider ADM Date DC Date Status Source [facility] [id number] MAJOR DEPRESSION ROSENDO GUERRA 12/22/2011 12/29/2011 Active [facility] Procedures No Data Provided for This Section Plan of Care No Data Provided for This Section Social History No Data Provided for This Section Assessment and Plan No Data Provided for This Section Family History No Data Provided for This Section Advance Directives No Data Provided for This Section Functional Status No Data Provided for This Section
== END 2020-04-03 15:49 | disposition home or self-care (01) ==
LOC: ER 15:31 → EDUNIT# 15:31 → ER 15:49
DX: L03.116 Cellulitis of left lower limb (principal)

== ENCOUNTER 2020-06-14 20:30 | Day surgery (SDC) | payer BC ==
[~2020-06-14] VITALS: Ht 185.5 cm; Wt 113.9 kg
[~2020-06-14 20:30] MED LIST changes: +AMOX-358 PO
[2020-06-14] MEDS ORDERED: NS IV 1000 ML 1,000 ML IV SCH (20:52)
[2020-06-14 21:22] LABS: BASOPHILS % (AUTO) 0 % (0-10); EOSINOPHILS # (AUTO) 0.1 10^3/uL (0.0-0.3); EOSINOPHILS % (AUTO) 1 % (0-10); HEMATOCRIT 44 % (40-54); HEMOGLOBIN 15.2 G/DL (13.3-17.7); LYMPHOCYTES # (AUTO) 2.6 X 10^3 (1.0-4.0); LYMPHOCYTES % (AUTO) 24 % (12-44); MEAN CORPUSCULAR HEMOGLOBIN 30 PG (25-34); MEAN CORPUSCULAR HGB CONC 34 G/DL (32-36); MEAN CORPUSCULAR VOLUME 87 FL (80-99); MONOCYTES % (AUTO) 9 % (0-12); NEUTROPHILS % (AUTO) 65 % (42-75); PLATELET COUNT 302 10^3/uL (130-400); RED CELL DISTRIBUTION WIDTH 13.5 % (10.0-14.5); WHITE BLOOD COUNT 10.7 10^3/uL (4.3-11.0)
--- NOTE | 2020-06-14 21:23 | Diagnostic Imaging Report ---
INDICATION: Injury, foot pain. EXAMINATION: Right foot at 9:03 p.m. Three views were obtained. FINDINGS: The prior exam of 03/23/2020 noted comminuted fractures involving the distal diametaphysis of the 3rd metatarsal. There is also a slightly displaced fracture of the head of the proximal phalanx of the 3rd digit and a nondisplaced fracture at the head of the 2nd metatarsal. In the interval since the prior exam a considerable amount of callus formation has developed about the fractures involving the heads of the 2nd and 3rd metatarsals. There is only a small amount of callus about the fracture of the proximal phalanx of the 3rd digit. The main fracture fragments are similar in alignment. There is no acute fracture identified. However in the interval since the prior study generalized soft tissue edema about the dorsum of the foot has developed. IMPRESSION: There are healing fractures of the 2nd and 3rd metatarsal heads and of the head of the proximal phalanx of the 3rd digit. There is no acute bony abnormality noted. However there is now generalized soft tissue edema about the dorsum of the foot. Dictated by: Dictated on workstation # [id number]
[2020-06-14] MEDS ORDERED: PIPERACILLIN SODIUM/TAZOBACTAM 4.5 GM in NS (IVPB) 100 ML IV ONE (21:30)
[2020-06-14] MEDS ORDERED: VANCOMYCIN INJECTION 1,000 MG in NS (IVPB) 250 ML IV ONE (21:30)
[2020-06-14 21:34] LABS: POTASSIUM 4.2 MMOL/L (3.6-5.0)
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
[2020-06-14 21:35] LABS: CALCIUM 9.3 MG/DL (8.5-10.1)
[2020-06-14 21:36] LABS: INR 0.9 (0.8-1.4); PROTHROMBIN TIME PATIENT 12.7 SEC (12.2-14.7); TOTAL PROTEIN 7.6 GM/DL (6.4-8.2)
[2020-06-14 21:38] LABS: BILIRUBIN,TOTAL 0.3 MG/DL (0.1-1.0)
[2020-06-14 21:40] LABS: CREATININE SERUM 1.44 MG/DL (0.60-1.30)
--- NOTE | 2020-06-14 22:22 | NUR ---
VINCENT CAMACHO admitted to room 419-1, with an admitting diagnosis of CELLULITIS RIGHT FOOT, TYPE 1 DM, METATARSAL TREATMENTS RIGHT FOOT, on 06/14/20 from ED via , accompanied by STAFF.VINCENT CAMACHO introduced to surroundings, call light, bed controls, phone, TV, temperature control, lights, meal times, smoking policy, visitor policy, side rail policy, bathrooms and showers. Patient Rights given to patient in the handbook.VINCENT CAMACHO verbalizes understanding that [facility] is not responsible for the loss or damage to any personal effects or valuables that are kept in the patients posession during their hospitalization.
[2020-06-14 22:25] VITALS: BP 170/98
[2020-06-14] MEDS ORDERED: ACETAMINOPHEN 325 MG TABLET PO PRN (22:30)
[2020-06-14] MEDS ORDERED: ONDANSETRON 4 MG/2 ML (SDV) Z0FRAN IV PRN (22:30)
[2020-06-15] VITALS (15 sets, daily range): BP systolic 107–170; BP diastolic 71–94
[2020-06-15] MEDS ORDERED: PIPERACILLIN/TAZO 4.5 GM VIAL (ZOSYN) IV ONE (00:28)
[2020-06-15] MEDS ORDERED: NS (IVPB) 100 ML ONE (00:28)
[2020-06-15] MEDS: PIPERACILLIN/TAZO 4.5 GM/NS 100 ML IV SCH ×6 (02:35→18:48)
[2020-06-15 04:52] LABS: BASOPHILS % (AUTO) 0 % (0-10); EOSINOPHILS # (AUTO) 0.1 10^3/uL (0.0-0.3); EOSINOPHILS % (AUTO) 1 % (0-10); HEMATOCRIT 42 % (40-54); HEMOGLOBIN 14.2 G/DL (13.3-17.7); LYMPHOCYTES # (AUTO) 1.5 X 10^3 (1.0-4.0); LYMPHOCYTES % (AUTO) 19 % (12-44); MEAN CORPUSCULAR HEMOGLOBIN 30 PG (25-34); MEAN CORPUSCULAR HGB CONC 34 G/DL (32-36); MEAN CORPUSCULAR VOLUME 88 FL (80-99); MEAN PLATELET VOLUME 9.9 FL (7.4-10.4); MONOCYTES # (AUTO) 0.8 X 10^3 (0.0-1.0); MONOCYTES % (AUTO) 10 % (0-12); NEUTROPHILS # (AUTO) 5.6 X 10^3 (1.8-7.8); NEUTROPHILS % (AUTO) 70 % (42-75); PLATELET COUNT 269 10^3/uL (130-400); RED CELL DISTRIBUTION WIDTH 13.6 % (10.0-14.5)
[2020-06-15] MEDS: NS IV 1000 ML 1,000 ML IV SCH ×2 (04:52→21:00)
[2020-06-15 05:01] LABS: ALBUMIN 3.6 GM/DL (3.2-4.5); CHLORIDE 108 MMOL/L (98-107); POTASSIUM 4.1 MMOL/L (3.6-5.0); SODIUM 140 MMOL/L (135-145)
[2020-06-15 05:02] LABS: CALCIUM 8.6 MG/DL (8.5-10.1)
[2020-06-15 05:03] LABS: GLUCOSE 88 MG/DL (70-105); TOTAL PROTEIN 6.8 GM/DL (6.4-8.2)
[2020-06-15 05:04] LABS: CARBON DIOXIDE 20 MMOL/L (21-32)
[2020-06-15 05:05] LABS: BILIRUBIN,TOTAL 0.6 MG/DL (0.1-1.0)
[2020-06-15 05:07] LABS: ALKALINE PHOSPHATASE 149 U/L (40-136); CREATININE SERUM 1.17 MG/DL (0.60-1.30); GFR ESTIMATED > 60
[2020-06-15 05:08] LABS: BUN/CREATININE RATIO 14
[2020-06-15 05:10] LABS: ALANINE AMINOTRANSFERASE 35 U/L (0-55)
[2020-06-15 05:37] LABS: ATYPICAL LYMPHOCYTES 2 %; BAND NEUTROPHILS 2 %; EOSINOPHILS % (MANUAL) 2 %; LYMPHOCYTES % (MANUAL) 17 %; MONOCYTES % (MANUAL) 6 %; NEUTROPHILS % (MANUAL) 71 %; RBC MORPH NORMAL
--- NOTE | 2020-06-15 06:50 | NUR ---
PTD VANCOMYCIN LABS: SCR 1.17 WBC 8 (10.7) INDICATION: CELLULITIS RIGHT FOOT PLAN: VANCOMCIN 1 GRAM WAS GIVEN IN ED ON 06/14 @5106, GARY INCREASE DOSE TO 1,500MG (15MG/KG) IV Q 12 HOURS, NEXT DOSE AT 0800, CHECK A TROUGH LEVEL PRIOR TO 4TH DOSE (06/16 @ 0700)
[2020-06-15] MEDS: VANCOMYCIN 1500 MG/NS 500 ML IVPB IV SCH ×4 (08:00→21:03)
--- NOTE | 2020-06-15 08:15 | NUR ---
0800 Vanc held. Patient taken to OR for procedure at 0815.
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
[2020-06-15] MEDS ORDERED: BUPIVACAINE 0.5% 30 ML (SENSORCAINE) VIAL ONE (08:41)
[2020-06-15] MEDS ORDERED: proPOfol 200 MG/20 ML (DIPRIVAN) VIAL IV ONE (08:54)
[2020-06-15] MEDS ORDERED: fentaNYL INJECTION 100 MCG/2 ML AMP ONE (08:54)
[2020-06-15] MEDS ORDERED: SEVOFLURANE (ULTANE) 15 ML INHAL SOLN ONE ×2 (08:54→09:32)
[2020-06-15] MEDS ORDERED: ONDANSETRON 4 MG/2 ML (SDV) Z0FRAN ONE (08:54)
[2020-06-15] MEDS ORDERED: LIDOCAINE PF 2% 5 ML (XYLOCAINE) VIAL ONE (08:54)
[2020-06-15] MEDS ORDERED: MIDAZOLAM 2 MG/2 ML (VERSED) VIAL ONE (08:54)
[2020-06-15] MEDS ORDERED: morphine INJ 10 MG/ML 1ML (SYR OR VIAL) IVP ONE (09:45)
[2020-06-15] MEDS ORDERED: ONDANSETRON 4 MG/2 ML (SDV) Z0FRAN IVP PRN (09:45)
[2020-06-15] MEDS ORDERED: fentaNYL INJECTION 100 MCG/2 ML AMP IVP ONE (09:45)
[2020-06-15] MEDS ORDERED: BISACODYL 10 MG SUPP (DULCOLAX) PR PRN (12:30)
[2020-06-15] MEDS ORDERED: MELATONIN 3 MG TABLET PO PRN (12:30)
[2020-06-15] MEDS ORDERED: CALCIUM CARBONATE 500 MG (TUMS) TAB.CHEW PO PRN (12:30)
[2020-06-15] MEDS ORDERED: ONDANSETRON 4 MG (ZOFRAN) ORAL DISSOLVE TAB PO PRN (12:30)
[2020-06-15] MEDS ORDERED: hydrALAZINE (APESOLINE) 20 MG/ML VIAL IV PRN (12:30)
[2020-06-15] MEDS ORDERED: polyethylene glycoL POWDER 17 GM (MIRALAX) PACK PO PRN (12:30)
[2020-06-15] MEDS ORDERED: ACETAMINOPHEN 325 MG TABLET PO PRN (12:30)
[2020-06-15] MEDS ORDERED: ONDANSETRON 4 MG/2 ML (SDV) Z0FRAN IV PRN (12:30)
[2020-06-15] MEDS ORDERED: PATIENT MAY USE OWN MEDS, ALL PO SCH (12:30)
[2020-06-15] MEDS ORDERED: diphenhydrAMINE 25 MG TAB (BENADRYL) PO PRN (12:30)
[2020-06-15] MEDS ORDERED: TRAZ150T72 PO (13:05)
[2020-06-15] MEDS ORDERED: SULF1TAB35 PO (13:05)
[2020-06-15] MEDS ORDERED: INSU100V SC (13:05)
[2020-06-15] MEDS ORDERED: QUIN20TA16 PO (13:05)
[2020-06-15] MEDS ORDERED: NAPR220T66 PO (13:06)
--- NOTE | 2020-06-15 13:31 | NUR ---
SPOKE WITH PT (HE HAD HIS HOME MEDS WITH HIM) AND WENT THRU THE EXT MED HISTORY TO COMPLETE THE MED REC THE FOLLOWING ARE FILL DATES NOTE LISTED ON THE EXT MED HISTORY: 04-13-2020 QUINAPRIL 20MG #90/90DS 04-13-2020 VENLAFAXINE ER 150MG #90/90DS ALL OTHER MEDS ARE LISTED ON THE EXT MED HISTORY AND PT WAS ABLE TO TELL ME HOW/WHEN HE TAKES EACH OTC MEDS: CHARLOTTE HAWKINS
[2020-06-15] MEDS ORDERED: lisINopril 40 MG (PRINIVIL) TABLET PO NR (13:32)
--- NOTE | 2020-06-15 13:37 | Anesthesia-General Post-Op ---
General Patient Condition Mental Status/LOC: Same as Preop Cardiovascular: Satisfactory Nausea/Vomiting: Absent Respiratory: Satisfactory Pain: Controlled Complications: Absent Post Op Complications Complications None Follow Up Care/Instructions Patient Instructions None needed. Anesthesia/Patient Condition Patient Condition Patient is doing well, no complaints, stable vital signs, no apparent adverse anesthesia problems. No complications reported per nursing. PEDRO PABLO VÁZQUEZ CRNA Jun 15, 2020 13:37
[2020-06-15] MEDS: inSUlin ASPART (NovoLOG) 1 UNIT/0.01 ML (CHARGE PER UNIT) SC SCH ×3 (14:10→21:14)
--- NOTE | 2020-06-15 15:48 | NUR ---
Patient has personal insulin pump. Blood sugar at this time 245, patient administered 10 units via pump.
--- NOTE | 2020-06-15 17:49 | Progress Note-Post Operative ---
Post-Operative Progess Note Surgeon (s)/Therapy Coordinator (s) Surgeon MAGDALENA WYNNE DO Therapy Coordinator: na Pre-Operative Diagnosis right foot abscess Post-Operative Diagnosis same Procedure & Operative Findings Date of Procedure 06/15/20 Procedure Performed/Findings incision and drainage Right foot abscess [id number] Anesthesia Type gen Estimated Blood Loss Estimated blood loss (mL): min Specimens/Packing Specimens Removed na Packin/ in iodoform MAGDALENA WYNNE DO Jun 15, 2020 17:49
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
[2020-06-15] MEDS ORDERED: traZODone 100 MG (DESYREL) TAB PO SCH (21:00)
[2020-06-15] MEDS: DOCUSATE SODIUM 100 MG (COLACE) CAP PO SCH (21:13)
[2020-06-15] MEDS: SENNOSIDES 8.6 MG (SENOKOT) TAB PO SCH (21:14)
--- NOTE | 2020-06-15 21:14 | NUR ---
Medication non-administer. Patient states took home medications.
--- NOTE | 2020-06-15 21:15 | NUR ---
Patient blood sugar 166. Patient has own insulin pump. States he gave himself no insulin for this blood sugar.
[2020-06-16] MEDS: NS IV 1000 ML 1,000 ML IV SCH (00:49)
[2020-06-16] MEDS: PIPERACILLIN/TAZO 4.5 GM/NS 100 ML IV SCH ×2 (03:21)
[2020-06-16 04:15] VITALS: BP 153/78
[2020-06-16] MEDS: inSUlin ASPART (NovoLOG) 1 UNIT/0.01 ML (CHARGE PER UNIT) SC SCH ×2 (05:33→11:52)
--- NOTE | 2020-06-16 05:33 | NUR ---
Patient states he took his own blood sugar. Blood sugar read 195. Patient gave own insulin from pump. Patient also states he took his own medications from home.
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
[2020-06-16] MEDS ORDERED: LEVOTHYROXINE 50 MCG (LEVOTHROID) TAB PO ONE (06:30)
--- NOTE | 2020-06-16 06:42 | Anesthesia-General Post-Op ---
General Patient Condition Mental Status/LOC: Same as Preop Cardiovascular: Satisfactory Nausea/Vomiting: Absent Respiratory: Satisfactory Pain: Controlled Complications: Absent Post Op Complications Complications None Follow Up Care/Instructions Patient Instructions None needed. Anesthesia/Patient Condition Patient Condition Patient is doing well, no complaints, stable vital signs, no apparent adverse anesthesia problems. No complications reported per nursing. MELO COVARRUBIAS CRNA Jun 16, 2020 06:42
[2020-06-16] MEDS ORDERED: TROUGH ORDER-PHARMACY XX ONE (07:00)
[2020-06-16] MEDS ORDERED: VENlafaxine XR 75 MG (EFFEXOR XR) CAP PO SCH (07:00)
[2020-06-16] MEDS ORDERED: VENLAFAXINE 150 MG PO SCH (08:00)
[2020-06-16 08:11] VITALS: BP 179/85
--- NOTE | 2020-06-16 08:11 | NUR ---
PTD VANCOMYCIN LABS: SCR 1.17 VANCOMYCIN TROUGH LEVEL 0704 9.9 A/P: THE PATIENT MISSED YESTERDAY MORNINGS DOSE (06/15 @ 0800), THIS LEVEL WAS NOT AT TRUE STEADY STATE DUE TO MISSED MORNINGS DOSE, WILL CONTINUE WITH CURRENT DOSING FOR NOW. REPEAT LEVEL ON 06/17/20.
[2020-06-16] MEDS: VANCOMYCIN 1500 MG/NS 500 ML IVPB IV SCH ×2 (08:18)
[2020-06-16] MEDS: SENNOSIDES 8.6 MG (SENOKOT) TAB PO SCH (08:22)
[2020-06-16] MEDS: DOCUSATE SODIUM 100 MG (COLACE) CAP PO SCH (08:22)
[2020-06-16] MEDS ORDERED: LEVOFLOXACIN 750 MG/150 ML IV 150 ML IV NR (09:00)
[2020-06-16] MEDS ORDERED: lisINopril 40 MG (PRINIVIL) TABLET PO SCH (09:00)
--- NOTE | 2020-06-16 09:03 | Progress Note - Surgery ---
Subjective Date Seen by a Provider: Jun 16, 2020 Time Seen by a Provider: 09:00 Subjective/Events-last exam Right foot feeling better. Pain controlled. No purulent drainage. Decreasing erythema. Denies n/v fever sweats chills shortness of breath or chest pain. Focused Exam Lactate Level 06/14/20 20:56: Lactic Acid Level 1.63 Objective Exam Vital Signs Date Time Temp Pulse Resp B/P (MAP) Pulse Ox O2 Delivery O2 Flow Rate FiO2 06/16/20 08:11 36.0 89 20 179/85 (116) 95 Room Air 06/16/20 04:15 37.0 90 18 153/78 (103) 97 Room Air 06/16/20 00:49 37.0 06/15/20 23:45 36.4 95 20 160/81 (107) 93 Room Air 06/15/20 20:00 Room Air 0.00 06/15/20 19:42 37.0 85 16 145/74 (97) 95 Room Air 06/15/20 15:30 37.1 88 18 122/71 (88) 96 Room Air 06/15/20 11:04 36.6 80 20 170/85 (113) 97 Room Air 06/15/20 10:35 36.3 14 163/94 (117) 97 Room Air 06/15/20 10:35 Room Air 06/15/20 10:30 14 163/94 (117) 97 Room Air 06/15/20 10:20 Room Air 06/15/20 10:20 22 163/85 (111) 96 Room Air 06/15/20 10:10 16 166/94 (118) 97 Room Air 06/15/20 10:05 Room Air 06/15/20 10:00 22 155/93 (113) 98 Room Air 06/15/20 09:50 OxyMask 5 06/15/20 09:50 16 145/87 (106) 97 OxyMask 5 06/15/20 09:40 12 107/73 (84) 98 OxyMask 8 06/15/20 09:37 OxyMask 10 06/15/20 09:37 36.2 15 111/72 (85) 96 OxyMask 10 I & O 06/16/20 07:00 Intake Total 1420 ml Output Total 1325 ml Balance 95 ml Capillary Refill : Less Than 3 SecondsLess Than 3 Seconds General Appearance: No Apparent Distress, WD/WN HEENT: PERRL/EOMI, Normal ENT Inspection Neck: Normal Inspection, Non Tender Respiratory: Chest Non Tender, No Accessory Muscle Use, No Respiratory Distress Cardiovascular: Regular Rate, Rhythm, No Edema Gastrointestinal: normal bowel sounds, non tender, soft Extremity: Swelling (right foot, open wound, no purulent material less surrounding edema) Neurologic/Psychiatric: Alert, Oriented x3, No Motor/Sensory Deficits, Normal Mood/Affect, painter airbrush II-XII Norm as Tested Skin: Erythema (less) Results Lab Laboratory Tests 06/15/20 20:16: Glucometer 166H 06/16/20 07:04: Vancomycin Level Trough 9.9L Microbiology 06/14/20 Gram Stain - Final, Resulted 06/14/20 Wound Culture - Preliminary, Resulted Pasteurella multocida 06/14/20 Blood Culture - Preliminary, Resulted No growth Assessment/Plan Assessment/Plan Assessment/Plan right foot cellulitis/abscess right foot healing fractures 2/3rd metatarsal heads DM 1 s/p incision and drainage right foot iv abx wound irrigated and packed, needs daily dressing change pain control home today or tomorrow Clinical Quality Measures DVT/VTE Risk/Contraindication: Risk Factor Score Per Nursin RFS Level Per Nursing on Admit: 3=MAGDALENA Velazquez DO Jun 16, 2020 09:03
[2020-06-16] MEDS ORDERED: HYDR-4226 PO (10:57)
[2020-06-16] MEDS ORDERED: LEVO750T39 PO (10:57)
--- NOTE | 2020-06-16 11:00 | Discharge Inst-Simple/Standard ---
Discharge Inst-Standard Discharge Medications New, Converted or Re-Newed RX: RX on Chart Patient Instructions/Follow Up Plan of Care/Instructions/FU: [facility] office tomorrow for wound change (nurse). Bring someone with you to be taught to help with packing. Call Office for nurse visit. [facility] 2 weeks. Activity as Tolerated: No Discharge Diet: Regular Diet Other Inst to Patient Follow up Appt: Make appointment for 1 week [facility] Instructions: No strenuous activity. May shower in 24 hours, no tub bath or soaking. Use incentive spirometer at home as directed. No Smoking Irrigate and pack wound daily and as needed. Irrigate with saline and pack with iodoform gauze. Skin/Wound Care: Irrigate and pack wound daily and as needed. Irrigate with saline and pack with iodoform gauze. Symptoms to Report: Appetite Changes, Extremity Discoloration, Numbness/Tingling, Swelling Increased, Bleeding Excessive, Eyesight Changes, Pain Increased, Urine Color Change, Constipation(Persistent), Fever over 101 degree F, Pain/Pressure in chest, Urinating Difficulty, Cough Up/Vomit Blood, Heart Beat Irreg/Pounding, Pain/Pressure in jaw, Vaginal Bleeding Increase, Cramps in feet or legs, L ightheadedness, Pain/Pressure in shoulder, Diarrhea(Persistent), Memory Changes Suddenly, Questions/Concerns, Weight gain consecutive days, Dizziness/Fainting, Nausea/Vomiting, Shortness of Breath, Weight gain over 2 pounds If questions or concerns contact your physician Or seek help at emergency department. MAGDALENA WYNNE DO Jun 16, 2020 11:00
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
[2020-06-16 11:28] VITALS: BP 145/68
[2020-06-16] MEDS ORDERED: ONDA4TAB11 PO (12:06)
--- NOTE | 2020-06-16 12:52 | NUR ---
RD ASSESSMENT PMHx: hypercholesterolemia; HTN; DM; fractures - R foot PT INTERACTION: Pt was awake and pleasant during nutrition assessment. Pt states current appetite is "terrible." Note avg PO intake 50% x1d, per chart review. Pt states following a low-CHO diet at home, and has no issues with chewing/swallowing food. Pt states some issues with nausea and vomiting. Pt states no recent issues with constipation or diarrhea. Note last BM was 06/15 and pt currently on bowel regimen of colace BID; and senna BID, per chart review. Pt states no recent wt changes. Note recent 2# wt loss x3mon, per chart review. Pt states current DM management is "pretty good." Note unable to determine recent HbA1c, per chart review. Note presence of wound (R foot), per chart review. ABNORMAL NUTRITION-RELATED LAB VALUES LOW: Na 130 HIGH: BUN 35; cr 1.74; glu 308 Est. kcal needs: 1700 kcal | 15 kcal/kg Est. Pro needs: 137 g Pro | 1.2 g Pro/kg PES STATEMENT: Inadequate oral intake (NI-2.1) related to loss of appetite | nausea | vomiting as evidenced by pt interview | avg PO intake 50% x1d Inadequate protein intake (NI-5.6.1) related to increased protein needs as evidenced by presence of wound (R foot) INTERVENTION: Continue with current diet order of CHO 60g/m 1snack diet. Add Ensure HP (vary) to meals TID. Provides 160 kcal and 16 g Pro per serving, for perceived benefit to wound healing. Discussed and provided diet education on DM management. Discussed portion control, CHO counting, and protein intake and DM's relationship to wound healing. Pt verbalized understanding of information provided. Encouraged pt to eat when able. Will continue to follow and reassess as pt needs, intake, and status change. MONITOR/EVALUATE: PO Intake; Plan of Care; Hydration Status; Weight Status; Lab Values Bri Huerta, MS, RD, LD
[2020-06-16 13:10] VITALS: BP 145/68
[2020-06-17] MEDS ORDERED: LEVOFLOXACIN 750 MG TAB (LEVAQUIN) PO SCH (11:00)
--- OUTSIDE RECORDS SUMMARY | 2020-06-20 14:27 | XMS REPORT | Continuity of Care Document ---
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 10/10/2016 LINH ZURITA MD Ot E11.9 TYPE 2 DIABETES MELLITUS WITHOUT COMPLIC 10/10/2016 LINH ZURITA MD Ot L72.3 SEBACEOUS CYST 10/10/2016 LINH ZURITA MD Ot Z79.4 PENITENTIARY (CURRENT) USE OF INSULIN 12/19/2016 HERMES MYERS DC Ot M51.3 6 OTHER INTERVERTEBRAL DISC DEGENERATION, 12/22/2016 MYERS DC, HERMES Ot M51.3 6 OTHER INTERVERTEBRAL DISC DEGENERATION, 01/19/2017 MYERS DC, HERMES Ot M51.3 6 OTHER INTERVERTEBRAL DISC DEGENERATION, 03/12/2018 MYERS DC, HERMES Ot M51.3 6 OTHER INTERVERTEBRAL DISC DEGENERATION, 03/12/2018 MYERS DC, HERMES Ot M51.3 6 OTHER INTERVERTEBRAL DISC DEGENERATION, 03/12/2018 MYERS DC, HERMES Ot M51.3 6 OTHER INTERVERTEBRAL DISC DEGENERATION, 03/24/2019 MYERS DC, HERMES Ot M16.0 BILATERAL PRIMARY OSTEOARTHRITIS OF HIP 03/24/2019 MYERS DC, HERMES Ot M54.5 LOW BACK PAIN 04/16/2019 MYERS DC, HERMES Ot M16.0 BILATERAL PRIMARY OSTEOARTHRITIS OF HIP 04/16/2019 MYERS DC, HERMES Ot M54.5 LOW BACK PAIN 03/23/2020 RAMAN HENDRIX APRN Ot E03 .9 HYPOTHYROIDISM, UNSPECIFIED 03/23/2020 RAMAN HENDRIX APRN Ot E11 .9 TYPE 2 DIABETES MELLITUS WITHOUT COMPLIC 03/23/2020 RAMAN HENDRIX APRN Ot F32 .9 MAJOR DEPRESSIVE DISORDER, SINGLE EPISOD 03/23/2020 RAMAN HENDRIX APRN Ot I10 ESSENTIAL (PRIMARY) HYPERTENSION 03/23/2020 RAMAN HENDRIX APRN Ot M79.671 PAIN IN RIGHT FOOT 03/23/2020 RAMAN HENDRIX APRN Ot S91.311A LACERATION WITHOUT FOREIGN BODY, RIGHT F 03/23/2020 RAMAN HENDRIX APRN Ot S92.324A NONDISP FX OF SECOND METATARSAL BONE, RI 03/23/2020 RAMAN HENDRIX APRN Ot S92.334A NONDISP FX OF THIRD METATARSAL BONE, RIG 03/23/2020 RAMAN HENDRIX APRN Ot W20.8XXA OTH CAUSE OF STRIKE BY THROWN, PROJECTED 03/23/2020 RAMAN HENDRIX APRN Ot Z23 ENCOUNTER FOR IMMUNIZATION 03/25/2020 RAMAN HENDRIX APRN Ot E03 .9 [...] CAUSE OF STRIKE BY THROWN, PROJECTED 03/25/2020 RAMAN HENDRIX APRN Ot Z23 ENCOUNTER FOR IMMUNIZATION 04/03/2020 HERMES MYERS DC Ot M51.3 6 OTHER INTERVERTEBRAL DISC DEGENERATION, 04/03/2020 HEMRES MYERS DC Ot M16.0 BILATERAL PRIMARY OSTEOARTHRITIS OF HIP 04/03/2020 HERMES MYERS DC, Ot M54.5 LOW BACK PAIN 04/03/2020 RAMAN HENDRIX APRN Ot L03.116 CELLULITIS OF LEFT LOWER LIMB Procedures There is no data. Results Test Result Range Capillary blood glucose measurement by g lucometer (mass/volume) - 10/07/16 12:06 Capillary blood glucose measurement by glucometer (mas s/volume) 165 mg/dL 70-110 Methicillin resistant Staphylococcus aur eus (MRSA) screening culture - 10/07/16 12:10 Methicillin resistant Staphylococcus aureus (MRSA) scr eening culture NEG NRG Complete blood count (CBC) with automate d white blood cell (WBC) differential - 06/14/20 20:56 Blood leukocytes automated count (number/volume) 10.7 10*3/uL 4.3-11.0 Blood erythrocytes automated count (number/volume) 5.11 10*6/uL 4.35-5.85 Venous blood hemoglobin measurement (mass/volume) 15.2 g/dL 13.3-17.7 Blood hematocrit (volume fraction) 44 % 40-54 Automated erythrocyte mean corpuscular volume 87 [ foz_us] 80-99 Automated erythrocyte mean corpuscular h emoglobin (mass per erythrocyte) 30 pg 25-34 Automated erythrocyte mean corpuscular h emoglobin concentration measurement (mass/volume) 34 g/dL 32-36 Automated erythrocyte distribution width ratio 13. 5 % 10.0- 14.5 Automated blood platelet count (count/volume) 302 10*3/uL 130-400 Automated blood platelet mean volume measurement 10.0 [foz_us] 7.4-10.4 Automated blood neutrophils/100 leukocytes 65 % 42-75 Automated blood lymphocytes/100 leukocytes 24 % 12-44 Blood monocytes/100 leukocytes 9 % 0-12 Automated blood eosinophils/100 leukocytes 1 % 0-10 Automated blood basophils/100 leukocytes 0 % 0-10 Blood neutrophils automated count (number/volume) 7.0 10*3 1.8-7.8 Blood lymphocytes automated count (number/volume) 2.6 10*3 1.0-4.0 Blood monocytes automated count (number/volume) 1. 0 10*3 0.0-1.0 Automated eosinophil count 0.1 10*3/uL 0 .0-0.3 Automated blood basophil count (count/volume) 0.0 10*3/uL 0.0-0.1 Blood lactic acid measurement (moles/vol ume) - 06/14/20 20:56 Blood lactic acid measurement (moles/volume) 1.63 mmol/L 0.50-2.00 Comprehensive metabolic panel - 06/14/20 20:56 Serum or plasma sodium measurement (moles/volume) 137 mmol/L 135-145 Serum or plasma potassium measurement (moles/volume) 4.2 mmol/L 3.6-5.0 Serum or plasma chloride measurement (moles/volume) 103 mmol/L 98-107 Carbon dioxide 21 mmol/L 21-32 Serum or plasma anion gap determination (moles/volume) 13 mmol/L 5-14 Serum or plasma urea nitrogen measurement (mass/volume ) 20 mg/dL 7-18 Serum or plasma creatinine measurement (mass/volume) 1.44 mg/dL 0.60-1.30 Serum or plasma urea nitrogen/creatinine mass ratio 14 NRG Serum or plasma creatinine measurement w ith calculation of estimated glomerular filtration rate 51 NRG Serum or plasma glucose measurement (mass/volume) 280 mg/dL 70-105 Serum or plasma calcium measurement (mass/volume) 9.3 mg/dL 8.5-10.1 Serum or plasma total bilirubin measurement (mass/volu me) 0.3 mg/dL 0.1-1.0 Serum or plasma alkaline phosphatase irene surement (enzymatic activity/volume) 171 U/L 40-136 Serum or plasma aspartate aminotransfera se measurement (enzymatic activity/volume) 25 U/L 5-34 Serum or plasma alanine aminotransferase measurement (enzymatic activity/volume) 37 U/L 0-55 Serum or plasma protein measurement (mass/volume) 7.6 g/dL 6.4-8.2 Serum or plasma albumin measurement (mass/volume) 4.0 g/dL 3.2-4.5 CALCIUM CORRECTED 9.3 mg/dL 8.5-10.1 PT panel in platelet poor plasma by coag ulation assay - 06/14/20 20:56 Prothrombin time (PT) in platelet poor plasma by coagu lation assay 12.7 s 12.2-14.7 INR in platelet poor plasma or blood by coagulation as say 0.9 0.8-1.4 Activated partial thromboplastin time (a PTT) in platelet poor plasma bycoagulation assay - 06/14/20 20:56 Activated partial thromboplastin time (a PTT) in platelet poor plasma bycoagulation assay 28 s 24-35 Serum or plasma C reactive protein measu rement (mass/volume) - 06/14/20 20:56 Serum or plasma C reactive protein measurement (mass/v olume) 2.92 mg/dL 0.00-0.50 Bacterial blood culture - 06/14/20 20:56 Bacterial blood culture NG NRG Coronavirus SARS-CoV-2 SO 2018 - 0 21:05 Coronavirus Ab [Units/volume] in Serum Negative Negative Capillary blood glucose measurement by g lucometer (mass/volume) - 06/14/20 21:16 Capillary blood glucose measurement by glucometer (mas s/volume) 264 mg/dL 70-110 Bacterial blood culture - 06/14/20 21:31 Bacterial blood culture NG NRG Gram stain microscopy - 06/14/20 21:40 Gram stain microscopy Rare gram positive cocci in clusters NRG Bacteria identification in wound by cult ure - 06/14/20 21:40 Bacteria identification in wound by culture [id number] NRG QUANTITY OF GROWTH Rare NRG SUSCEPTIBILITY SMALL AMOUNT NRG MRSA SCREEN BETA LACTAMASE NEGATIVE NRG MRSA CONFIRMATION NO SUSCEPTIBILITY PERFORMED NRG Complete blood count (CBC) with automate d white blood cell (WBC) differential - 06/15/20 04:37 Blood leukocytes automated count (number/volume) 8.0 10*3/uL 4.3-11.0 Blood erythrocytes automated count (number/volume) 4.76 10*6/uL 4.35-5.85 Venous blood hemoglobin measurement (mass/volume) 14.2 g/dL 13.3-17.7 Blood hematocrit (volume fraction) 42 % 40-54 Automated erythrocyte mean corpuscular volume 88 [ foz_us] 80-99 Automated erythrocyte mean corpuscular h emoglobin (mass per erythrocyte) 30 pg 25-34 Automated erythrocyte mean corpuscular h emoglobin concentration measurement (mass/volume) 34 g/dL 32-36 Automated erythrocyte distribution width ratio 13. 6 % 10.0- 14.5 Automated blood platelet count (count/volume) 269 10*3/uL 130-400 Automated blood platelet mean volume measurement 9.9 [foz_us] 7.4-10.4 Automated blood neutrophils/100 leukocytes 70 % 42-75 Automated blood lymphocytes/100 leukocytes 19 % 12-44 Blood monocytes/100 leukocytes 10 % 0-12 Automated blood eosinophils/100 leukocytes 1 % 0-10 Automated blood basophils/100 leukocytes 0 % 0-10 Blood neutrophils automated count (number/volume) 5.6 10*3 1.8-7.8 Blood lymphocytes automated count (number/volume) 1.5 10*3 1.0-4.0 Blood monocytes automated count (number/volume) 0. 8 10*3 0.0-1.0 Automated eosinophil count 0.1 10*3/uL 0 .0-0.3 Automated blood basophil count (count/volume) 0.0 10*3/uL 0.0-0.1 Comprehensive metabolic panel - 06/15/20 04:37 Serum or plasma sodium measurement (moles/volume) 140 mmol/L 135-145 Serum or plasma potassium measurement (moles/volume) 4.1 mmol/L 3.6-5.0 Serum or plasma chloride measurement (moles/volume) 108 mmol/L 98-107 Carbon dioxide 20 mmol/L 21-32 Serum or plasma anion gap determination (moles/volume) 12 mmol/L 5-14 Serum or plasma urea nitrogen measurement (mass/volume ) 16 mg/dL 7-18 Serum or plasma creatinine measurement (mass/volume) 1.17 mg/dL 0.60-1.30 Serum or plasma urea nitrogen/creatinine mass ratio 14 NRG Serum or plasma creatinine measurement w ith calculation of estimated glomerular filtration rate > NRG Serum or plasma glucose measurement (mass/volume) 88 mg/dL 70-105 Serum or plasma calcium measurement (mass/volume) 8.6 mg/dL 8.5-10.1 Serum or plasma total bilirubin measurement (mass/volu me) 0.6 mg/dL 0.1-1.0 Serum or plasma alkaline phosphatase irene surement (enzymatic activity/volume) 149 U/L 40-136 Serum or plasma aspartate aminotransfera se measurement (enzymatic activity/volume) 25 U/L 5-34 Serum or plasma alanine aminotransferase measurement (enzymatic activity/volume) 35 U/L 0-55 Serum or plasma protein measurement (mass/volume) 6.8 g/dL 6.4-8.2 Serum or plasma albumin measurement (mass/volume) 3.6 g/dL 3.2-4.5 CALCIUM CORRECTED 8.9 mg/dL 8.5-10.1 Manual absolute plasma cell count - 05/28 04:37 Blood monocytes/100 leukocytes 6 % NRG Manual blood segmented neutrophils/100 leukocytes 71 % NRG Blood band neutrophils/100 leukocytes 2 % NRG Manual blood lymphocytes/100 leukocytes 17 % NRG Manual eosinophils/100 leukocytes in nose 2 % NRG Manual blood lymphocytes variant/100 leukocytes 2 % NRG Blood erythrocyte morphology finding identification NORMAL NRG Capillary blood glucose measurement by g lucometer (mass/volume) - 06/15/20 20:16 Capillary blood glucose measurement by glucometer (mas s/volume) 166 mg/dL 70-110 Vancomycin trough - 06/16/20 07:04 Vancomycin trough 9.9 ug/mL 10.0-20.0 Encounters ACCT No. Visit Date/Time Discharge Status Pt. Type Provider Facility Loc./Unit Complaint [id number] 06/14/2020 21:15:00 13:10:00 DIS Inpatient MAGDALENA WYNNE DO [facility] 4TH CELLULITIS RIGHT FOOT,T YPE 1 DM,METATARSAL TOS [id number] 04/03/2020 15:31:00 15:49:00 DIS Emergency RAMAN HENDRIX APRN [facility] ER SUTURE REMOVAL [id number] 03/23/2020 17:34:00 020 18:52:00 DIS Emergency RAMAN HENDRIX APRN [facility] ER R FOOT PAIN [id number] 03/22/2019 13:58:00 019 23:59:59 CLS Outpatient HERMES MYERS DC [facility] RAD LOW BACK PAIN [id number] 12/16/2016 14:20:00 017 23:59:59 CLS Outpatient HERMES MYERS DC [facility] RAD LUMBAR PAIN [id number] 10/07/2016 11:56:00 016 13:25:00 DIS Out[facility] SC[facility]ULA FLORECITA ON [id number] 09/27/2016 05:51:00 12:42:00 DIS Outpatient LINH ZURITA MD [facility] PREOP CYST LEFT SCAPULAR REG ION [id number] 12/19/2011 23:48:00 Document Registration
--- OUTSIDE RECORDS SUMMARY | 2020-06-20 14:27 | XMS REPORT | Clinical Summary ---
Author Author [facility] Organization [facility] Address Unknown Phone Unavailable Care Team Providers Care Edging Machine Feeder Name Role Phone PCP Unavailable Allergies Not [...]
--- OUTSIDE RECORDS SUMMARY | 2020-06-20 14:27 | XMS REPORT | Encounter Summary ---
Author Author [facility] Organization [facility] Address Unknown Phone Unavailable Care Team Providers Care Digitizer Operator Name Role Phone PCP Unavailable Encounter Details Care Team Description Date Type Department Melani John MD [address] [place] [address] [phone] Major depressive disorder, recurrent epi sode, severe, without mention of psychotic behavior 12/22/2011 [facility] Encounter [address] [address] Social History Date Tobacco Use Types Packs/Day Years Used Never Assessed Sex Assigned at Date Recorded Not on file Industry Job Start Date Occupation Not on file Not on file Not on file Travel End Travel History Travel Start No recent travel history available. documented as of this encounter Discharge Summaries * Melani John - 01/24/2014 10:34 PM [employer]IS[employer] WORK[employer] REPORT Name: LEBRON HOYT Date of : 1965 Attending Physician: MELANI JOHN Date of Admission: 12/22/2011 Date of Discharge: 12/22/2011 DIAGNOSES: [place] I: Major depressive disorder, recurrent, severe. Anxiety disorder, not otherwise specified. [place] II: Deferred. [place] III: History of diabetes. Hypertension. Hyperlipidemia. [place] IV: Severe. [place] V: GAF = 35. BRIEF HISTORY AND [...] patient was upset that his went to [place] to see her ex-roommate who was recently . The patient said that he was worrying excessively and thought that she was cheating on him. The patient said that she was also planning to go to [place] and recently told him that they will [...] various options. They wanted to go to [facility], but they did not have any beds available. The patient's was insistent that she and her [id number] can transport the patient on their own to the hospital. The patient was given the option to see the petrography teacher, but they decided to leave AGAINST MEDICAL ADVICE. They were going to take the patient directly to [facility] emergency room and will hope that a bed will become available. DISCHARGE MEDICATIONS: Electronically generated summary for 1. ACCUPRIL ORAL 40 mg Daily AM 2. HUMALOG SUBQ via insulin pump 3. LEVOXYL ORAL 50 mcg Daily AM 4. PRAVASTATIN ORAL 80 mg Daily AM Melani John MD Dictated by: cc: Nikhil Pepper DO, [facility] Primary Care Physician Melani John MD, [facility] Attending Physician THELMA, RENETTA Aquino, [facility] Referring Physician UIT FACTORY WORKER documented in this encounter H&P Notes * Liss Clinton MD - 01/24/2014 10:48 PM BISCUIT FACTORY WORKER REPORT Name: LEBRON HOYT Date of : [...] Pepper DO, [facility] Primary Care Physician [employer] FA[employer] WORKER documented in this encounter Miscellaneous Notes * Psychiatric Evaluation - Melani John - 01/24/2014 10:48 PM BISCUIT FACTORY WORKER REPORT Name: LEBRON HOYT Date of : 1965 Attending Physician: MELANI JOHN Date of Admission: 12/22/2011 IDENTIFICATION DATA: The patient is a 46-year-old white male who is currently living in [place], [place] with his and children. He is [...] The patient says the recently went to [place] to see her ex-classmate who was recently . The patient said he was worrying excessively and thought that she was cheating on him. She also has been planning to go to [place] and, according to him, told him recently [...] insulin. He tried to talk to the protective services case worker and reportedly the protective services case worker called the police and different people who [...] Pepper DO, [facility] Primary Care Physician [employer] FACTORY WORKER documented in this encounter Plan of Treatment Not on filedocumented as of this encounter Procedures Comments Procedure Name Priority Date/Time Associated Diag nosis GLUCOSE POC Routine 12/22/2011 5:16 PM [employer] WORKER GLUCOSE POC Routine 12/22/2011 3:07 PM [employer]ISCUIT FACTORY WORKER GLUCOSE POC Routine 12/22/2011 11:32 AM BISCUIT FACTORY WORKER GLUCOSE POC Routine 12/22/2011 10:23 AM BISCUIT FACTORY WORKER THYROID STIMULATING Routine 12/22/2011 HORMONE 10:00 AM BISCUIT FACTORY WORKER GLUCOSE POC Routine 12/22/2011 6:46 AM BISCUIT FACTORY WORKER documented in this encounter Results * GLUCOSE POC (12/22/2011 5:16 PM BISCUIT FACTORY WORKER) Only the most recent of 5 results within the time period is included. Glucose POC 232 (H) 70 - 100 MG/DL SUNQUEST Specimen Blood Performing Organization Address [facility] Ph one Number [phone] [phone] SUNQUEST * Thyroid Stimulating Hormone (12/22/2011 10:00 AM BISCUIT FACTORY WORKER) Thyroid 1.96 0.47 - 4.68 UIU/ML SUNQUEST Stimulating Hormone Specimen Blood Performing Organization Address [facility] Ph one Number [phone] [phone] SUNQUEST documented in this encounter Visit Diagnoses Diagnosis Major depressive disorder, recurrent ep isode, severe, without mention of psychotic behavior documented in this encounter
--- OUTSIDE RECORDS SUMMARY | 2020-06-20 14:27 | XMS REPORT | Continuity of Care Document ---
Author Author [facility] [place] CORI RODGER [facility] Address Unknown Phone Unavailable Care Team Providers Care Membership Sales Advisor Name Role Phone [facility] Unavailable Unavailable Problems Problem Status Onset Date Classification Date Reported Comments Source Unspecified nonpsychotic mental disorder [facility] DE[facility] DIS[facility], NOT ELSEWHERE CLASSIFIED Active 12/22/2011 [facility] [place] MAJOR DEPRESSIVE DISORDER, RECURRENT EPI SODE, SEVERE DEGREE, WITHOUT MENTION OF PSYCHOTIC BEHAVIOR Active [facility] [place] Diabetes mellitus without complication, type II or unspecified type, not stated as uncontrolled Active [facility] (Current) Use of Insulin Active [facility] [place] UNSPECIFIED HYPOTHYROIDISM Act lauren [facility] [place] Suicidal ideation Active [facility] [place] Medications No Data Provided for This Section [...] = 126 = Provisional diagnosis of diabetes.
[facility] CHEMISTRY Glucose Level (POC) 134 mg /dL 70 - 100 12/29/2011 HI <sup>2</sup>Interpretive Data: Interpret ative Data: 100-125 = Impaired Fasting Glucose
> or = 126 = Provisional diagnosis of diabetes.
[facility] CHEMISTRY Glucose Level (POC) 157 mg /dL 70 - 100 12/29/2011 [place] <sup>3</sup>Interpretive Data: Interpret ative Data: 100-125 = Impaired Fasting Glucose
> or = 126 = Provisional diagnosis of diabetes.
[facility] CHEMISTRY GFR (MDRD) 67.1 m L/min/1.73 m2 12/23/2011 NA <sup>4</sup>Result Comment: GFR calculat ed based on MDRD abbreviated formula.

Age(years) Average GFR
20-29 116 ml/min/1.73 m2
30-39 107 ml/min/1.73 m2
40-49 99 ml/min/1.73 m2
50-59 93 ml/min/1.73 m2
60-69 85 ml/min/1.73 m2
70+ 75 ml/min/1.73 m2

Acceptable GFR =>60 ml/min/1.73 m2
Chronic Kidney Disease <60 ml/min/1.73 m2
Kidney Failure <15 ml/min/1.73 m2 [facility] CHEMISTRY Est CrCL (CG) 86.5 m L/min 12/23/2011 <sup>5</sup>Result Comment: Estimated Cr eatinine Clearance calculated based on the Cockcroft-Gault formula. [facility] CHEMISTRY Hgb A1c 9.1 % 4.4 - 6.0 12/23/2011 [facility] CHEMISTRY Estimated Average Glucose 214 mg/dL 12/23/2011 NA [facility] CHEMISTRY Total Protein 7.3 g/ dL 6.6 - 8.7 12/23/2011 [facility] CHEMISTRY Creatinine 1.2 mg/dL 0.7 - 1.2 12/23/2011 [facility] CHEMISTRY Albumin Level 4.2 g/ dL 3.5 - 5.2 12/23/2011 [facility] CHEMISTRY Calcium 9.3 mg/dL 8.6 - 10.2 12/23/2011 [facility] CHEMISTRY ALT 16 Int er. Units/L 0 - 41 12/23/2011 [facility] CHEMISTRY AST 11 Units/L 0 - 40 12/23/2011 [facility] CHEMISTRY Alk Phos [address] Units/L 35 - 105 12/23/2011 [facility] CHEMISTRY Bili Total 0.7 mg/dL 0.0 - 1.2 12/23/2011 [facility] CHEMISTRY Glucose 350 mg/dL 70 - 100 12/23/2011 [facility] CHEMISTRY AGAP 14 mmol/L 3 - 19 12/23/2011 [facility] CHEMISTRY CO2 22 mmol/L 22 - 29 12/23/2011 [facility] CHEMISTRY Chloride 98 mmol/L 98 - 107 12/23/2011 [facility] CHEMISTRY Potassium 4.4 mmol/L 3.5 - 5.1 12/23/2011 [facility] CHEMISTRY BUN 24 mg/dL 8 - 20 12/23/2011 [facility] CHEMISTRY Sodium 134 mmol/L 136 - 145 12/23/2011 LOW [facility] er ENDOCRINE/TUMOR MARKER TSH 3.31 microInter.Units/mL 0.27 - 4.20 12/23/2011 [facility] HEMATOLOGY Neutrophils Abs 4.6 x 10'3/microL 1.4 - 7.2 12/23/2011 [facility] HEMATOLOGY Lymphocytes Abs 1.9 x 10'3/microL 1.2 - 3.4 12/23/2011 [facility] HEMATOLOGY Basophils Abs 0.2 x 10'3/microL 0.0 - 0.2 12/23/2011 [facility] HEMATOLOGY Eosinophils Abs 0.0 x 10'3/microL 0.0 - 0.5 12/23/2011 [facility] HEMATOLOGY Monocytes Abs 0.5 x 10'3/microL 0.1 - 0.6 12/23/2011 [facility] HEMATOLOGY Basophils % 3 % 0 - 3 12/23/2011 [facility] HEMATOLOGY Monocytes % 7 % 0 - 13 12/23/2011 [facility] HEMATOLOGY Neutrophils % 64 % 44 - 76 12/23/2011 [facility] HEMATOLOGY Eosinophils % 1 % 0 - 7 12/23/2011 [facility] HEMATOLOGY Lymphocytes % 26 % 13 - 43 12/23/2011 [facility] HEMATOLOGY Hgb 15.8 g/dL 13.5 - 18.0 12/23/2011 [facility] HEMATOLOGY RBC 5.17 x10'6/microL 4.50 - 6.50 12/23/2011 [facility] HEMATOLOGY MCV 89 fL 81 - 99 12/23/2011 [facility] HEMATOLOGY Hct 46 % 40 - 52 12/23/2011 [facility] HEMATOLOGY WBC 7.1 x 10'3/microL 4.0 - 11.0 12/23/2011 [facility] HEMATOLOGY MCH 31 pg 27 - 34 12/23/2011 [facility] HEMATOLOGY MPV 8.2 fL 6.5 - 10.4 12/23/2011 [facility] HEMATOLOGY Platelet 291 x 10'3/microL 140 - 400 12/23/2011 [facility] HEMATOLOGY RDW 13.8 % <=14.5 12/23/2011 [facility] HEMATOLOGY MCHC 35 g/dL 32 - 36 12/23/2011 [facility] TOXICOLOGY/THER DRUG Alcohol Blood <10.1 mg/dL <=10.1 12/23/2011 <sup>6</sup>Interpretive Sha a: 50-100mg/dl Flushing, slowing of reflexes, impaired visual acuity.
>100 mg/dl Depression of EDITOR MANAGING NEWSPAPER
>400 mg/dl Fatalities reported. [facility] URINE Microscopic? No <sup>7< /sup>
(12/22/2011 19:50:00) <sup> </sup> 12/23/2011 <sup>7</sup>Interpretive Data: When result = No, Microscopic is not indicated. Specimen is held for 3 days. Call [phone] if further testing is needed. [facility] URINE UA Nitrite Negative < br/>(12/22/2011 19:50:00) <sup> </sup> Negative 12/23/2011 [facility] URINE UA Protein Negative m g/dL
(12/22/2011 19:50:00) <sup> </sup> Negative 12/23/2011 [facility] URINE UA Leuk Est Negative < br/>(12/22/2011 19:50:00) <sup> </sup> Negative 12/23/2011 [facility] URINE UA Urobilinogen 0.2 EU per dL 0.2 - 1.0 12/23/2011 [facility] URINE Culture? No
(0 12/22/2011 19:50:00) <sup> </sup> 12/23/2011 [facility] URINE UA pH 5.0 5.0 - 8.0 12/23/2011 [facility] URINE UA Blood Negative < br/>(12/22/2011 19:50:00) <sup> </sup> Negative 12/23/2011 [facility] URINE UA Bili Negative < br/>(12/22/2011 19:50:00) <sup> </sup> Negative 12/23/2011 [facility] URINE UA Glucose >=1000 mg/ dL
*ABN*
(12/22/2011 19:50:00) <sup> </sup> Negative 12/23/2011 ABN [facility] URINE UA Spec Type Clean Catc h
(12/22/2011 19:50:00) <sup> </sup> 12/23/2011 [facility] URINE UA Color Yellow
(12/22/2011 19:50:00) <sup> </sup> 12/23/2011 [facility] URINE UA Ketones >=80 mg/dL
*ABN*
(12/22/2011 19:50:00) <sup> </sup> Negative 12/23/2011 ABN [facility] URINE UA Spec Grav >=1.030 <b r/>(12/22/2011 19:50:00) <sup> </sup> 1.001 - 1.030 12/23/2011 [facility] URINE U Sp Grav >=1.030 <b r/>(12/22/2011 19:50:00) <sup> </sup> 1.001 - 1.030 12/23/2011 [facility] URINE U PCP Screen Negative <sup>13</sup>
(12/22/2011 19:50:00) <sup> </sup> Negative 12/23/2011 <sup>13</sup>Interpretive Data: Screenin g Cutoff: 25 ng/mL

Drug screening results are reported as presumptive only and do not include confirmation testing. These drug testing results are to be used for medical or drug treatment/rehabilitation purposes only. [facility] URINE U Opiate Scrn Negative <sup>12</sup>
(12/22/2011 19:50:00) <sup> </sup> Negative 12/23/2011 <sup>12</sup>Interpretive Data: Screenin g Cutoff: 300 ng/mL

Drug screening results are reported as presumptive only and do not include confirmation testing. These drug testing results are to be used for medical or drug treatment/rehabilitation purposes only. [facility] URINE Ur Creat 97.5 mg/dL 39.0 - 259.0 12/23/2011 [facility] URINE U Amph Scrn Negative < sup>8</sup>
(12/22/2011 19:50:00) <sup> </sup> Negative 12/23/2011 <sup>8</sup>Interpretive Data: Screening Cutoff: 1000 ng/mL

Drug screening results are reported as presumptive only and do not include confirmation testing. These drug testing results are to be used for medical or drug treatment/rehabilitation purposes only. [facility] URINE U Debbie Scrn Negative < sup>9</sup>
(12/22/2011 19:50:00) <sup> </sup> Negative 12/23/2011 <sup>9</sup>Interpretive Data: Screening Cutoff: 200 ng/mL

Drug screening results are reported as presumptive only and do not include confirmation testing. These drug testing results are to be used for medical or drug treatment/rehabilitation purposes only. [facility] URINE U Benzodia Scrn Negative <sup>10</sup>
(12/22/2011 19:50:00) <sup> </sup> Negative 12/23/2011 <sup>10</sup>Interpretive Data: Screenin g Cutoff: 200 ng/mL

Drug screening results are reported as presumptive only and do not include confirmation testing. These drug testing results are to be used for medical or drug treatment/rehabilitation purposes only. [facility] URINE U Cannab Scrn Negative <sup>14</sup>
(12/22/2011 19:50:00) <sup> </sup> Negative 12/23/2011 <sup>14</sup>Interpretive Data: Screenin g Cutoff: 20 ng/mL

Drug screening results are reported as presumptive only and do not include confirmation testing. These drug testing results are to be used for medical or drug treatment/rehabilitation purposes only. [facility] URINE U Cocaine Scrn Negative <sup>11</sup>
(12/22/2011 19:50:00) <sup> </sup> Negative 12/23/2011 <sup>11</sup>Interpretive Data: Screenin g Cutoff: 300 ng/mL

Drug screening results are reported as presumptive only and do not include confirmation testing. These drug testing results are to be used for medical or drug treatment/rehabilitation purposes only. [facility] Pathology Reports No Data Provided for This [...] Provider ADM Date DC Date Status Source [facility] [id number] MAJOR DEPRESSION ROSENDO GUERRA 12/22/2011 12/29/2011 Active [facility] Procedures No Data Provided for This Section [...]
== END 2020-06-16 13:10 | disposition home or self-care (01) ==
LOC: EDUNIT# 20:30 → ER 20:31 → 4TH 21:15 → UNDOADMOB 21:15 → SDC 22:22 → 4TH 22:22 → SDC 06-16 13:10 → UNDODISOB 06-16 13:10
PROVIDERS: ATTEND Surgery
DX: L02.611 Cutaneous abscess of right foot (principal); S92.321D Displaced fracture of second metatarsal bone, right foot, subsequent encounter for fracture with routine healing; S92.331D Displaced fracture of third metatarsal bone, right foot, subsequent encounter for fracture with routine healing; L03.115 Cellulitis of right lower limb; B96.89 Other specified bacterial agents as the cause of diseases classified elsewhere; E10.9 Type 1 diabetes mellitus without complications; A28.0 Pasteurellosis; Z79.4 Long term (current) use of insulin; Z96.41 Presence of insulin pump (external) (internal); E03.9 Hypothyroidism, unspecified; I10 Essential (primary) hypertension; E78.00 Pure hypercholesterolemia, unspecified; F32.9 Major depressive disorder, single episode, unspecified; Z87.442 Personal history of urinary calculi; Z79.890 Hormone replacement therapy; Z79.899 Other long term (current) drug therapy; Z20.828 Contact with and (suspected) exposure to other viral communicable diseases
CPT/HCPCS: 10060; 73630; 80053 ×2; 80202; 82962 ×2; 83605; 85007; 85025; 85027; 85610; 85730; 86141; 87040; 87070; 87077; 87185; 87205; 96361; 96365; 96367; 99284; G0378; U0002; 36415; 87635

== ENCOUNTER 2020-08-15 16:52 | Day surgery (SDC) | payer BC ==
[~2020-08-15] VITALS: Ht 185 cm; Wt 119.2 kg
[2020-08-15] VITALS (7 sets, daily range): BP systolic 119–154; BP diastolic 66–82
[~2020-08-15 16:52] MED LIST changes: +HYDR-4226 PO; -HYDR-83 PO; +INSU100V SC; +LEVO750T39 PO; +NAPR220T66 PO; +ONDA4TAB11 PO; +QUIN20TA16 PO; +SULF1TAB35 PO; +TRAZ150T72 PO
[2020-08-15] MEDS ORDERED: LORazepam INJ 2 MG/ML (ATIVAN) VIAL ONE (16:57)
[2020-08-15] MEDS ORDERED: NITROGLYCERIN 0.4 MG SL TABS BTL 25'S SL ONE (17:00)
[2020-08-15] MEDS ORDERED: meTOprolol 5 MG/5 ML (LOPRESSOR) VIAL ONE (17:03)
--- NOTE | 2020-08-15 17:21 | ED Chest Pain ---
General Stated Complaint: CHEST PAIN Nursing Triage Note: CHEST PAIN STARTED AT 1530 -EMS CALLED AT 1600 Nursing Sepsis Screen: No Definite Risk Source: patient, family Exam Limitations: no limitations History of Present Illness Date Seen by Provider: Aug 15, 2020 Time Seen by Provider: 16:[address] Hoyt is a 54-year-old gentleman who presents to the emergency room with abrupt onset of shortness of breath followed by chest pain that started around 15:30. He had been working on a car in his garage and initially thought he was experiencing carbon monoxide poisoning. He is a insulin-dependent diabetic whose blood sugar was 150. EMS was activated and transported him to the e mergency room. In route he had STEMI confirmed by EMS EKG. He denies any history of prior cardiac disease. He denies any symptoms of cough, fever, shortness of breath, or chest pain prior to 15:30. Call Center Team Leader was activated and Dr. Delarosa was contacted prior to patient's arrival. EMS administered aspirin 324 mg and morphine 5 mg. Patient had a recent right foot surgery. Dr. Delarosa arrived at bedside promptly. Allergies and Home Medications Allergies Coded Allergies: Mayela Known Allergies (Unverified Allergy, Mild, 05/27/09) Home Medications Atorvastatin Calcium 80 Mg Tablet, 80 MG PO DAILY, (Reported) Hydrocodone/Acetaminophen 1 Each Tablet, 1 TAB PO Q4-6HR Prescribed by: MAGDALENA WYNNE on 06/16/20 1057 Insulin Lispro 100 Unit/1 Ml Vial, UNITS SC UD, (Reported) USES PER INSULIN PUMP Levofloxacin 750 Mg Tablet, 750 MG PO DAILY@1100 Prescribed by: MAGDALENA WYNNE on 06/16/20 1057 Levothyroxine Sodium 50 Mcg Tablet, 50 MCG PO DAILY, (Reported) Ondansetron 4 Mg Tab.rapdis, 4 MG PO Q6H PRN for NAUSEA/VOMITING Prescribed by: TEMO VILLAREAL on 06/16/20 1206 Quinapril HCl 20 Mg Tablet, 20 MG PO DAILY, (Reported) Trazodone HCl 150 Mg Tablet, 150 MG PO HS, (Reported) Venlafaxine HCl 150 Mg Cap.er.24h, 150 MG PO DAILY, (Reported) Patient Home Medication List Home Medication List Reviewed: Yes Review of Systems Review of Systems Constitutional: no symptoms reported EENTM: No Symptoms Reported Respiratory: See HPI Cardiovascular: See HPI Gastrointestinal: No Symptoms Reported Genitourinary: No Symptoms Reported Musculoskeletal: no symptoms reported Skin: no symptoms reported Psychiatric/Neurological: Anxiety Endocrine: No Symptoms Reported Hematologic/Lymphatic: No Symptoms Reported Past Dahmtrp-Oeniao-Uosfml Hx Past Med/Social Hx: Reviewed Nursing Past Med/Soc Hx Patient Social History Smoking Status: Light Tobacco Smoker 2nd Hand Smoke Exposure: No Recent Foreign Travel: No Contact w/Someone Who Travel: No Recent Infectious Disease Expo: No Recent Hopitalizations: No Immunizations Up To Date Tetanus Booster (TDap): More than 5yrs PED Vaccines UTD: Yes Date of Pneumonia Vaccine: Oct 27, 2011 Date of Influenza Vaccine: Aug 27, 2016 Seasonal Allergies Seasonal Allergies: No Past Medical History Surgeries: No Respiratory: No Cardiac: Yes High Cholesterol, Hypertension Neurological: No Reproductive Disorders: No Genitourinary: Yes Kidney Stones Gastrointestinal: No Musculoskeletal: Yes (TOES ON RIGHT FOOT) Fractures Endocrine: Yes Diabetes, Insulin dep, Hypothyroidsim HEENT: No Cancer: No Psychosocial: Yes Depression Integumentary: No Blood Disorders: No Family Medical History Patient reports no known family medical history. No Pertinent Family Hx Physical Exam Vital Signs Vital Signs - First Documented 08/15/20 16:57 Pulse 106 Resp 24 B/P (MAP) 172/95 (120) Pulse Ox 100 O2 Delivery Nasal Cannula Capillary Refill : Less Than 3 Seconds Height, Weight, BMI Height: 6'1.00" Weight: 245lbs. 6.0oz. 111.841207oc; 33.00 BMI Method: General Appearance: WD/WN, Moderate Distress HEENT: PERRL/EOMI, Normal ENT Inspection Neck: Normal Inspection Respiratory: Lungs Clear, Normal Breath Sounds, No Accessory Muscle Use, No Respiratory Distress Cardiovascular: No Edema, No Murmur, Irregularly Irregular, Tachycardia Gastrointestinal: Normal Bowel Sounds, Non Tender, Soft Extremity: Normal Inspection, No Pedal Edema Neurologic/Psychiatric: Alert, Oriented x3, No Motor/Sensory Deficits, Normal Mood/Affect, microstrategy developer II-XII Norm as Tested Skin: Normal Color, Warm/Dry Procedures/Interventions Suture Size: 4-0 Progress/Results/Core Measures Results/Orders Lab Results Laboratory Tests Test 08/15/20 17:00 Range/Units My Orders Orders - ISHMAEL MELCHOR MD Lorazepam Injection (Ativan Injection) (08/15/20 16:57) Nitroglycerin 0.4 Mg Btl 25's (Nitrostat (08/15/20 17:00) Metoprolol Tartrate Injection (Lopressor (08/15/20 17:03) Cbc With Automated Diff (08/15/20 17:18) Magnesium (08/15/20 17:18) Chest 1 View, Ap/Pa Only (08/15/20 17:18) Ekg Tracing (08/15/20 17:18) Comprehensive Metabolic Panel (08/15/20 17:18) Myoglobin Serum (08/15/20 17:18) Protime With Inr (08/15/20 17:18) Partial Thromboplastin Time (08/15/20 17:18) O2 (08/15/20 17:18) Monitor-Rhythm Ecg Trace Only (08/15/20 17:18) Lipid Panel (08/16/20 06:00) Ed Iv/Invasive Line Start (08/15/20 17:18) Troponin I (08/15/20 17:18) Nitroglycerin 0.4 Mg Btl 25's (Nitrostat (08/15/20 17:30) Ekg Tracing (08/15/20 17:18) Lorazepam Injection (Ativan Injection) (08/15/20 17:30) Covid 19 Inhouse Test (08/15/20 17:22) Medications Given in ED Current Medications Medications Dose Ordered Sig/Airam Route Start Time Stop Time Status Last Admin Dose Admin Lorazepam 2 mg STK-MED ONCE .ROUTE 08/15/20 16:57 08/15/20 17:01 DC 08/15/20 17:00 2 MG Metoprolol Tartrate 5 mg STK-MED ONCE .ROUTE 08/15/20 17:03 08/15/20 17:07 DC 08/15/20 17:08 5 MG Nitroglycerin 0.4 mg STK-MED ONCE SL 08/15/20 17:00 08/15/20 17:05 DC 08/15/20 17:04 0.4 MG Vital Signs/I&O 08/15/20 08/15/20 16:57 17:14 Pulse 106 81 Resp 24 30 B/P (MAP) 172/95 (120) 133/82 (99) Pulse Ox 100 98 O2 Delivery Nasal Cannula Room Air Blood Pressure Mean: 99 Progress Progress Note : Time: 17:20 Progress Note Patient was immediately seen and examined upon arrival. Call Center Team Leader team was already activated and in route. STEMI was confirmed by EKG. Patient had already been given aspirin and morphine by EMS. He was additionally given Ativan 1 mg IV and nitroglycerin times one in the emergency room. He is presently being transferred to the Call Center Team Leader for PCI. He is stable at this time. Rapid COVID swab was obtained. EKG #1: EKG Time: 16:53 Rate: 113 Rhythm: S.Tach Comment Sinus tachycardia with PACs. ST elevation consistent with inferior posterior acute myocardial infarction. EKG #2: EKG Time: 17:03 Rate: 107 Rhythm: S.Tach Comment Sinus tachycardia with PACs and ST elevation consistent with acute inferior posterior myocardial infarction. Departure Communication (Admissions) Time/Spoke to Admitting Phy: 16:43 Impression Primary Impression: Acute NH Qualified Codes: I21.3 - ST elevation (STEMI) myocardial infarction of unspecified site Disposition: ADMITTED INPATIENT Condition: Critical Admissions Decision to Admit Reason: Admit from ER (General) Decision to Admit/Date: Aug 15, 2020 Time/Decision to Admit Time: 16:53 Departure-Patient Inst. Referrals: FRANKIE ALBRIGHT DO (PCP/Family) Primary Care Physician ISHMAEL MELCHOR MD Aug 15, 2020 17:21
[2020-08-15 17:24] LABS: BASOPHILS % (AUTO) 0 % (0-10); EOSINOPHILS % (AUTO) 0 % (0-10); HEMATOCRIT 47 % (40-54); HEMOGLOBIN 16.6 G/DL (13.3-17.7); LYMPHOCYTES # (AUTO) 3.7 X 10^3 (1.0-4.0); LYMPHOCYTES % (AUTO) 25 % (12-44); MEAN CORPUSCULAR HEMOGLOBIN 29 PG (25-34); MEAN CORPUSCULAR HGB CONC 35 G/DL (32-36); MEAN CORPUSCULAR VOLUME 84 FL (80-99); MEAN PLATELET VOLUME 10.5 FL (7.4-10.4); MONOCYTES # (AUTO) 1.2 X 10^3 (0.0-1.0); MONOCYTES % (AUTO) 8 % (0-12); NEUTROPHILS # (AUTO) 10.2 X 10^3 (1.8-7.8); NEUTROPHILS % (AUTO) 67 % (42-75); PLATELET COUNT 325 10^3/uL (130-400); WHITE BLOOD COUNT 15.2 10^3/uL (4.3-11.0)
[2020-08-15 17:27] LABS: ALBUMIN 4.2 GM/DL (3.2-4.5); POTASSIUM 4.2 MMOL/L (3.6-5.0)
[2020-08-15] MEDS ORDERED: ATROPINE INJECTION 1 MG/10 ML SYR (ABBOTT) ONE (17:27)
[2020-08-15] MEDS ORDERED: EPTIFIBATIDE BOLUS 0 ML IV ONE (17:29)
[2020-08-15] MEDS ORDERED: EPTIFIBATIDE DRIP 0 ML IV ONE (17:29)
[2020-08-15 17:30] LABS: INR 0.9 (0.8-1.4); TOTAL PROTEIN 7.3 GM/DL (6.4-8.2)
[2020-08-15] MEDS ORDERED: NITROGLYCERIN 0.4 MG SL TABS BTL 25'S SL PRN (17:30)
[2020-08-15] MEDS ORDERED: LORazepam INJ 2 MG/ML (ATIVAN) VIAL IVP ONE (17:30)
[2020-08-15 17:32] LABS: BILIRUBIN,TOTAL 0.6 MG/DL (0.1-1.0)
[2020-08-15 17:33] LABS: CREATININE SERUM 1.4 MG/DL (0.60-1.30)
[2020-08-15 17:36] LABS: MAGNESIUM 1.8 MG/DL (1.6-2.4)
[2020-08-15] MEDS ORDERED: TICAGRELOR 90 MG TABLET (BRILINTA) PO ONE (17:44)
[2020-08-15] MEDS ORDERED: fentaNYL INJECTION 100 MCG/2 ML AMP ONE (17:47)
[2020-08-15] MEDS ORDERED: HEParin (CATH LAB) 2,000 ML IV ONE (17:47)
[2020-08-15] MEDS ORDERED: MIDAZOLAM 5 MG/5 ML (VERSED) VIAL ONE (17:47)
[2020-08-15] MEDS ORDERED: NITRO DRIP 25000 MCG/D5W 250 ML IV ONE (17:47)
[2020-08-15] MEDS ORDERED: NS IV 1000 ML 1,000 ML ONE ×2 (17:47→18:02)
[2020-08-15] MEDS ORDERED: LIDOCAINE 1% INJ 20 ML 20 ML VIAL ONE (17:47)
[2020-08-15] MEDS ORDERED: HEParin 1000 UNIT/ML (10ML VIAL) FOR BOLUS ONE (17:47)
--- NOTE | 2020-08-15 17:57 | Cardiology History & Physical ---
HPI-Cardiology Cardiology Consultation Date of Consultation 08/15/20 Date of Admission Time Seen by Provider: 17:00 Indication: chest pain HPI 54 years old gentleman with history of diabetes mellitus, hypertension hyperlipidemia started to have chest pain around 330 in the afternoon described as dull in nature in the retrosternal area associated with diaphoresis. Called EMS and noted to have ST elevation in the inferior wall on my evaluation in the ER he was still having active chest pain, given sublingual nitroglycerin 5 mg of Lopressor, he was diaphoretic. Reported slight improvement in the chest pain continued to have ST elevation PMH-Cardiology Immunizations Up To Date Tetanus Booster (DTap): More than 5yrs Date of Pneumonia Vaccine: Oct 27, 2011 Date of Influenza Vaccine: Aug 27, 2016 Seasonal Allergies Seasonal Allergies: No Surgeries No (r foot) Respiratory No Cardiovascular Yes Neurological No Reproductive System Hx Reproductive Disorders: No Genitourinary No Kidney Stones Gastrointestinal No Musculoskeletal Yes (TOES ON RIGHT FOOT) Fractures Endocrine Yes Diabetes, Insulin dep, Hypothyroidsim HEENT No Cancer No Psychosocial Yes Depression Integumentary No Blood Transfusions No Social History Patient Social History Marrital Status: Employed/Student: employed Alcohol Use: Denies Use Recreational Drug Use: No Smoking: Current some day smoker Recent Foreign Travel: No Contact w/other who traveled: No Recent Infectious Disease Expo: No Family Hx Significant Family History: No Pertinent Family Hx Other Noncontributory Family History: Patient reports no known family medical history. ROS-Cardiology Review of Systems General: No Chills, No Night Sweats, No Fatigue, No Malaise, No Appetite HEENT: No Head Aches, No Visual Changes, No Eye Pain, No Ear Pain, No Dysphasia, No Sinus Congestion, No Post Nasal Drip, No Sore Throat Pulmonary: Dyspnea; No Cough, No Pleuritic Chest Pain Cardiovascular: Chest Pain; No: Palpitations, Orthopnea, Paroxysmal Noc. Dyspnea, Edema, Lt Headedness Gastrointestinal: No: Nausea, Vomiting, Abdominal Pain, Diarrhea, Constipation, Melena, Hematochezia Genitourinary: No Dysuria, No Frequency, No Incontinence, No Hematuria, No Rete ntion Musculoskeletal: No: neck pain, shoulder pain, arm pain, back pain, hand pain, leg pain, foot pain Neurological: No: Weakness, Numbness, Incoordination, Change in speech, Confusion, Seizures Home Medications & Allergies Allergies: Coded Allergies: NKANo Known Allergies (Unverified Allergy, Mild, 05/27/09) Home Medication List Reviewed: Yes Exam-Cardiology Vital Signs Vital Signs Date Time Temp Pulse Resp B/P (MAP) Pulse Ox O2 Delivery O2 Flow Rate FiO2 08/15/20 17:15 81 30 133/82 (99) 98 Nasal Cannula 2.00 Exam General Appearance: Alert, Oriented X3, Cooperative, No Acute Distress HEENT: Atraumatic, PERRLA Respiratory: Clear to Auscultation, Normal Air Movement Cardiovascular: Regular Rate, Normal S1, Normal S2, No Murmurs Abdominal: Normal Bowel Sounds, Soft, No Tenderness, No Hepatosplenomegaly, No Masses Extremities: No Clubbing, No Cyanosis, No Edema, Normal Pulses, No Tenderness/Swelling Skin: No Rashes, No Breakdown, No Significant Lesion Neuro: Normal Gait, Normal Speech, Strength at 5/5 X4 Ext, Normal Tone, Sensation Intact Psych/Mental Status: Mental Status NL, Mood NL Results Labs Labs Laboratory Tests 08/15/20 17:00: White Blood Count 15.2H, Red Blood Count 5.64, Hemoglobin 16.6, Hematocrit 47, Mean Corpuscular Volume 84, Mean Corpuscular Hemoglobin 29, Mean Corpuscular Hemoglobin Concent 35, Red Cell Distribution Width 13.7, Platelet Count 325, Mean Platelet Volume 10.5H, Neutrophils (%) (Auto) 67, Lymphocytes (%) (Auto) 25, Monocytes (%) (Auto) 8, Eosinophils (%) (Auto) 0, Basophils (%) (Auto) 0, Neutrophils # (Auto) 10.2H, Lymphocytes # (Auto) 3.7, Monocytes # (Auto) 1.2H, Eosinophils # (Auto) 0.0, Basophils # (Auto) 0.0, Prothrombin Time 13.0, INR Comment 0.9, Activated Partial Thromboplast Time 21L, Sodium Level 139, Potassium Level 4.2, Chloride Level 105, Carbon Dioxide Level 18L, Anion Gap 16H , Blood Urea Nitrogen 22H, Creatinine 1.40H, Estimat Glomerular Filtration Rate 53, BUN/Creatinine Ratio 16, Glucose Level 201H, Calcium Level 10.0, Corrected Calcium 9.8, Magnesium Level 1.8, Total Bilirubin 0.6, Aspartate Amino Transf (AST/SGOT) 20, Alanine Aminotransferase (ALT/SGPT) 31, Alkaline Phosphatase 119, Myoglobin 181.5H, Troponin I < 0.028, Total Protein 7.3, Albumin 4.2, Coronavirus 2019 (ONIEL) Negative A/P-Cardiology Admission Diagnosis Acute ST elevation myocardial infarction Coronary artery disease Hypertension Hyperlipidemia Admission Status: Inpatient Order (span 2 midnights) Reason for Inpatient Admission: Acute ME Assessment/Plan Acute ST elevation myocardial infarction, in the inferior wall, proceeded with emergency cardiac catheterization and stenting to the right coronary artery Coronary artery disease status post emergency cardiac catheterization with door to balloon time 37 minutes, total occlusion of the right coronary artery successful stenting using Xience Sierra2.75 x 15 mm expanded to 3.1 mm with excellent results. Mild disease in the LAD and circumflex artery, normal LV function Hypertension, was hypotensive during the procedure, receiving IV fluid, started on beta blockers and MODESTA inhibitor and evaluate tolerance and response Hyperlipidemia, started on Lipitor 80 mg daily Diabetes mellitus, started on Accu-Chek, will be managed by primary care physician Obesity, BMI 33. Clinical Quality Measures AMI/AHF: ASA po Prior to arrival: Yes MAITE BEE MD Aug 15, 2020 17:57
--- NOTE | 2020-08-15 17:58 | Cardiac Procedure Note-CS/ASA ---
Pre-Procedure Note Pre-Op Procedure Note H&P Reviewed The H&P was reviewed, patient examined and no changes noted. Date H&P Reviewed: Aug 15, 2020 Time H&P Reviewed: 16:55 Conscious Sedation Pre-Proced Time 16:55 ASA Score 3 For ASA 3 and 4: Consider anesthesia and medical clearance. Also, for patients with a history of failed moderate sedation consider anesthesia. Airway Lungs Heart ASA score ASA 1: a normal healthy patient ASA 2: a patient with a mild systemic disease (mid diabetes, controlled hypertension, obesity x ASA 3: a patient with a severe systemic disease that limits activity (angina, COPD, prior Myocardial infarction) ASA 4: a patient with an incapacitating disease that is a constant threat to life (CHF, renal failure) ASA 5: a moribund patient not expected to survive 24 hrs. (ruptured aneurysm) ASA 6: a declared brain- patient whose organs are being harvested. For emergent operations, add the letter E after the classification Mallampati Classification Grade 3 Sedation Plan Analgesia, Amnesia, Plan communicated to team members, Discussed options with patient/fam, Discussed risks with patient/fam The patient is an appropriate candidate to undergo the planned procedure, sedation, and anesthesia. The patient immediately re-assessed prior to indication. MAITE BEE MD Aug 15, 2020 5:58 pm
[2020-08-15] MEDS ORDERED: PATIENT MAY USE OWN MEDS, ALL PO SCH (18:00)
--- NOTE | 2020-08-15 18:03 | Cardiac Cath Report ---
Cardiac Cath Report Physician (s)/Ic Designer Custom (s) Physician MAITE BEE MD Pre-Procedure Diagnosis Pre-Procedure Diagnosis: ST elevation [place] Post-Procedure Note Procedure Start Date: Aug 15, 2020 Name of Procedure: Left heart Catheterization Stenting of the right coronary artery Left ventriculogram Findings/Procedure Note PROCEDURE NOTE: 54 years old gentleman admitted with acute ST elevation myocardial infarction in the inferior wall, catheter lab team were activated emergency cardiac catheterization was recommended. After explaining the procedure to the patient, all pros and cons were explained, all questions were answered. The patient signed the consent and then he was placed on the cardiac catheterization laboratory. Groin was prepped SL fashion local anesthesia was used. Sheath placed in the right femoral artery, advanced Adriano left catheter diagnostic evaluated 2 images of the left system then removed at advanced with FR guide, patient received 5000 unit of heparin, angiogram showed total occlusion of the right coronary artery, I advanced the wire through the right coronary artery and reestablished flow, did balloon angioplasty using emerge balloon then proceeded with deployment of Xcience Deborah 2.75 x 15 mm stent postdilated with noncompliant 3.0 balloon expanded to 3.1 mm with excellent results, immediately ST elevation returned to normal, patient was hypotensive, given IV fluid. I readvanced the Adriano left diagnostic catheter and performed the rest of the images of the left coronary system then advanced the pigtail catheter to the left ventricular cavity and performed left ventriculogram. At the end of the procedure the sheath was removed. Closure device was used FINDINGS: Hemodynamics LV 96/19, end-diastolic pressure of 19 Aorta 102/56 mean of 72 ANATOMY: Left Main is free of obstructive disease Left Anterior Descending has mild irregularity no significant obstructive disease Left Circumflex is nondominant artery with mild irregularity no significant obstructive disease Right Coronory Artery is totally occluded at the midportion successful balloon angioplasty then stent deployment using Xcience Deborah 2.75 x 15 mm drug-eluting stent expanded to 3.1 mm using noncompliant balloon. Excellent results with reestablishment of flow. LV Gram was done showing normal left ventricular size, EF 50 percent CONCLUSION: 1. Acute ST elevation myocardial infarction with total occlusion of the right coronary artery successful stenting using Zions Deborah 2.75 x 15 mm stent in the midright coronary artery expanded to 3.1 mm with excellent results 2. Mild irregularity in the left system nonobstructive disease 3. Normal left ventricular size, systolic function is preserved estimated ejection fraction 50 percent 4. Door to balloon time 37 minutes DISCUSSION AND RECOMMENDATION: Patient was loaded with aspirin and Brilinta, started on Toprol, lisinopril and Lipitor. Anesthesia Type: Conscious Sedation Estimated blood loss (mL): 25 ml Contrast Amount: 118 ml Total Radiation Dose: 1253 mGy Post-Procedure Diagnosis Post-operative diagnosis: ST elevation myocardial infarction Coronary artery disease Hypertension Hyperlipidemia MAITE BEE MD Aug 15, 2020 6:03 pm
[2020-08-15 18:20] LABS: NEUTROPHILS % (MANUAL) 71 %
[2020-08-15 18:21] LABS: EOSINOPHILS % (MANUAL) 3 %; LYMPHOCYTES % (MANUAL) 16 %; MONOCYTES % (MANUAL) 6 %; RBC MORPH NORMAL; REACTIVE LYMPHOCYTES 4 %
[2020-08-15] MEDS: NS IV 1000 ML 1,000 ML IV SCH (18:45)
[2020-08-15 19:07] LABS: CHLORIDE 108 MMOL/L (98-107)
[2020-08-15 19:08] LABS: POTASSIUM 3.8 MMOL/L (3.6-5.0); SODIUM 141 MMOL/L (135-145)
[2020-08-15 19:09] LABS: CALCIUM 8.7 MG/DL (8.5-10.1); GLUCOSE 145 MG/DL (70-105)
[2020-08-15 19:11] LABS: CARBON DIOXIDE 24 MMOL/L (21-32)
[2020-08-15 19:31] LABS: BUN/CREATININE RATIO 17; CREATININE SERUM 1.24 MG/DL (0.60-1.30); GFR ESTIMATED > 60
[2020-08-15] MEDS: inSUlin ASPART (NovoLOG) 1 UNIT/0.01 ML (CHARGE PER UNIT) SC SCH (21:28)
[2020-08-15] MEDS: TICAGRELOR 90 MG TABLET (BRILINTA) PO SCH (22:21)
[2020-08-16] VITALS (12 sets, daily range): BP systolic 108–155; BP diastolic 53–119
[2020-08-16] MEDS: NS IV 1000 ML 1,000 ML IV SCH (01:45)
[2020-08-16 05:09] LABS: HEMOGLOBIN 13.4 G/DL (13.3-17.7); MEAN PLATELET VOLUME 10.1 FL (7.4-10.4); WHITE BLOOD COUNT 8.9 10^3/uL (4.3-11.0)
[2020-08-16 05:22] LABS: CHLORIDE 109 MMOL/L (98-107); POTASSIUM 3.7 MMOL/L (3.6-5.0); SODIUM 140 MMOL/L (135-145)
[2020-08-16 05:23] LABS: CALCIUM 8.3 MG/DL (8.5-10.1)
[2020-08-16 05:24] LABS: GLUCOSE 135 MG/DL (70-105); TRIGLYCERIDES 142 MG/DL (<150); VLDL CHOLESTEROL 28 MG/DL (5-40)
[2020-08-16] MEDS: inSUlin ASPART (NovoLOG) 1 UNIT/0.01 ML (CHARGE PER UNIT) SC SCH ×2 (05:25→11:00)
[2020-08-16 05:26] LABS: CARBON DIOXIDE 22 MMOL/L (21-32)
[2020-08-16 05:28] LABS: CREATININE SERUM 1.08 MG/DL (0.60-1.30); GFR ESTIMATED > 60
[2020-08-16 05:29] LABS: BUN/CREATININE RATIO 19; CHOLESTEROL 143 MG/DL (< 200)
[2020-08-16 05:30] LABS: HDL CHOLESTEROL 38 MG/DL (40-60)
[2020-08-16] MEDS ORDERED: PANTOPRAZOLE 40 MG (PROTONIX) TAB PO SCH (07:00)
[2020-08-16] MEDS ORDERED: ASPIRIN E.C. 81 MG (ECOTRIN) TAB PO SCH (09:00)
[2020-08-16] MEDS ORDERED: lisINopril 5 MG (PRINIVIL) TABLET PO SCH (09:00)
[2020-08-16] MEDS: TICAGRELOR 90 MG TABLET (BRILINTA) PO SCH ×2 (09:25→14:18)
--- NOTE | 2020-08-16 10:48 | Cardiology Discharge Summary ---
Discharge Summary Hospital Course Problems Reviewed?: Yes Hospital Course Date of Admission: Admission Diagnosis : Family Physician/Provider: Nikhil Pepper DO Date of Discharge: 08/16/20 Discharge Diagnosis: [ Acute ST elevation myocardial infarction Coronary artery disease Hypertension Hyperlipidemia Diabetes mellitus] Hospital Course: [ Acute ST elevation myocardial infarction, in the inferior wall, proceeded with emergency cardiac catheterization and stenting to the right coronary artery Coronary artery disease status post emergency cardiac catheterization with door to balloon time 37 minutes, total occlusion of the right coronary artery successful stenting using Xience Sierra2.75 x 15 mm expanded to 3.1 mm with excellent results. Mild disease in the LAD and circumflex artery, normal LV function Hypertension, restarted on Accupril, add Toprol and monitor Hyperlipidemia, started on Lipitor 80 mg daily Diabetes mellitus, started on Accu-Chek, will be managed by primary care ph ysician Obesity, BMI 33. Patient was feeling well, groin is healing well, no new complaint, EKG improved. Planning for discharge today] Labs and Pending Lab Test: Laboratory Tests 08/16/20 10:26: Glucometer 174H Home Meds Active Aspirin EC (Aspirin) 81 Mg Tablet.dr 81 Mg PO DAILY Metoprolol Succinate 25 Mg Tab.er.24h 25 Mg PO DAILY Brilinta (Ticagrelor) 90 Mg Tablet 90 Mg PO BID Reported Trazodone HCl 150 Mg Tablet 150 Mg PO HS Humalog (Insulin Lispro) 100 Unit/1 Ml Vial Units SC UD MDD 120 UNITS USES PER INSULIN PUMP Quinapril HCl 20 Mg Tablet 20 Mg PO DAILY Effexor Xr (Venlafaxine HCl) 150 Mg Cap.er.24h 150 Mg PO DAILY Levothyroxine Sodium 50 Mcg Tablet 50 Mcg PO DAILY Atorvastatin Calcium 80 Mg Tablet 80 Mg PO DAILY Assessment/Pt DC Instructions Appointment with Dr Delarosa in 1-2 weeks Discharge Physical Examination Allergies: Coded Allergies: NKANo Known Allergies (Unverified Allergy, Mild, 05/27/09) General Appearance: No Apparent Distress, WD/WN HEENT: PERRL/EOMI, TMs Normal, Normal ENT Inspection, Pharynx Normal Respiratory: Chest Non Tender, Lungs Clear, Normal Breath Sounds, No Accessory Muscle Use, No Respiratory Distress Cardiovascular: Regular Rate, Rhythm, No Edema, No Gallop, No JVD, No Murmur, Normal Peripheral Pulses Gastrointestinal: Normal Bowel Sounds, No Organomegaly, No Pulsatile Mass, Non Tender, Soft Extremity: Normal Capillary Refill, Normal Inspection, Normal Range of Motion, Non Tender, No Calf Tenderness Skin: Normal Color, Warm/Dry Neurologic/Psychiatric: Alert, Oriented x3, No Motor/Sensory Deficits, Normal Mood/Affect Clinical Quality Measures Admission Status Admission Status: Inpatient Order (span 2 midnights) Reason for Inpatient Admission: Acute myocardial infarction AMI/AHF: Ejection Fraction: Normal LVSF D/C Medications Addressed: Hiram inhibitors, Beta aurelio ASA po Prior to arrival: Yes DVT/VTE Risk/Contraindication: VTE Addressed: Yes VTE Present on Admission: No Risk Factor Score Per Nursin RFS Level Per Nursing on Admit: 3=High MAITE DELAROSA MD Aug 16, 2020 10:48
[2020-08-16] MEDS ORDERED: MTP25TSR PO (10:51)
[2020-08-16] MEDS ORDERED: ASPI-1238 PO (10:51)
[2020-08-16] MEDS ORDERED: TICA90TA PO (10:51)
== END 2020-08-16 14:25 | disposition home or self-care (01) ==
LOC: EDUNIT# 16:52 → ER 16:53 → CATH 17:46 → ICU 18:12 → CATH 08-16 14:25
PROVIDERS: ATTEND Internal Medicine Cardiovascular Disease
DX: I21.3 ST elevation (STEMI) myocardial infarction of unspecified site (principal); I25.10 Atherosclerotic heart disease of native coronary artery without angina pectoris; I10 Essential (primary) hypertension; E78.5 Hyperlipidemia, unspecified; E11.9 Type 2 diabetes mellitus without complications; F41.9 Anxiety disorder, unspecified; E78.00 Pure hypercholesterolemia, unspecified; E03.9 Hypothyroidism, unspecified; F32.9 Major depressive disorder, single episode, unspecified; E66.9 Obesity, unspecified; Z68.34 Body mass index [BMI] 34.0-34.9, adult; F17.210 Nicotine dependence, cigarettes, uncomplicated; Z79.4 Long term (current) use of insulin; Z79.899 Other long term (current) drug therapy
CPT/HCPCS: 80048 ×2; 80053; 80061; 82010; 82962 ×2; 83605; 83735; 83874; 84484 ×2; 85007; 85027 ×2; 85610; 85730; 93005 ×2; 93041; 93458; 99285; C1725 ×2; C1760; C1769; C1874; C1894; C9606; U0002; 36415; 87635

== ENCOUNTER → 2021-07-23 | Outpatient (CLI) | payer BC ==
[~2021-07-23] MED LIST changes: +ASPI-1238 PO; +MTP25TSR PO; -SULF1TAB35 PO; +SULF1TAB38 PO; +TICA90TA PO
== END ==
LOC: CARD 14:00
PROVIDERS: ATTEND Internal Medicine Cardiovascular Disease
DX: I11.9 Hypertensive heart disease without heart failure (principal)
CPT/HCPCS: 93306

== ENCOUNTER → 2021-09-06 | Outpatient (CLI) | payer BC ==
[~2021-09-06] MED LIST changes: +CATHETER FLUSH 10 ML SYR IV PRN
[2021-09-06 09:14] VITALS: BP 131/88
--- NOTE | 2021-09-06 12:46 | Cardiology Stress Test Report ---
Stress Test Report Date of Procedure/Referring: Date of Procedure: Sep 06, 2021 PCP Maite Delarosa MD Admitting Physician Nikhil Pepper DO Indications: HTN Baseline Heart Rate: 75 Baseline Blood Pressure: Blood Pressure Systolic: 131 Blood Pressure Diastolic: 88 Vital Signs Date Time Temp Pulse Resp B/P (MAP) Pulse Ox O2 Delivery O2 Flow Rate FiO2 09/06/21 09:14 73 18 131/88 (102) 98 Room Air Baseline Vital Signs Vital Signs Date Time Temp Pulse Resp B/P (MAP) Pulse Ox O2 Delivery O2 Flow Rate FiO2 09/06/21 09:14 73 18 131/88 (102) 98 Room Air Baseline EKG: Baseline EKG: NSR Summary: After explaining the procedure and details to the patient, he signed the consent and was brought to the stress nuclear laboratory. Patient exercised on standard Alejandro protocol, EKG, heart rate and blood pressure were monitored continuously, resting and stress doses of radio tracer were injected, imaging was acquired and reviewed in the short axis, horizontal long axis and vertical long axis views Patient was able to exercise for a total of 9 minutes on Alejandro protocol, METs 10.5 Maximum heart rate 153 Maximum blood pressure 220/67 Stress EKG, Minimal nondiagnostic changes Recovery EKG, Return to baseline TID: 0.98 SSS: 3 SDS: 3 EF: 65 Conclusion: 1. Excellent exercise tolerance for a total of 9 minutes / 10.5 minutes on standard Alejandro protocol achieving 92% of maximal expected heart rate 2. Appropriate heart rate response to exercise with hypertensive response to exercise with peak blood pressure 220/67 return to baseline during recovery 3. Minimal nondiagnostic EKG changes with exercise return to baseline during recovery 4. Extracardiac attenuation with the right arm down during imaging affecting the quality of the images with mild decrease uptake involving the mid to apical anterior wall with subtle reversibility, no significant ischemia or infarction on SPECT images 5. Normal left ventricular size, EF 65% MAITE DELAROSA MD Sep 06, 2021 12:46
== END ==
LOC: CARD 08:15
PROVIDERS: ATTEND Internal Medicine Cardiovascular Disease
DX: I10 Essential (primary) hypertension (principal)
CPT/HCPCS: 78452; 93017; A9502

== ENCOUNTER 2022-11-22 22:32 | Inpatient (IN) | payer BC ==
[~2022-11-22] VITALS: Ht 185.4 cm; Wt 99.5 kg
[~2022-11-22 22:32] MED LIST changes: -CATHETER FLUSH 10 ML SYR IV PRN; +LEVO750T PO; -LEVO750T39 PO; -QUIN20TA16 PO; +QUIN20TA36 PO; -VENL150C PO; +VENL150C3 PO
[2022-11-22] MEDS ORDERED: NITROGLYCERIN 2% OINT 1 GM UNIT DOSE PACKET TOP STA (22:35)
[2022-11-22] MEDS ORDERED: ASPIRIN 81 MG CHEW (CHILDREN'S ASA) PO ONE (22:45)
[2022-11-22 22:51] LABS: BASOPHILS % (AUTO) 0 % (0-10); EOSINOPHILS # (AUTO) 0.1 10^3/uL (0.0-0.3); EOSINOPHILS % (AUTO) 2 % (0-10); HEMATOCRIT 41 % (40-54); LYMPHOCYTES # (AUTO) 2.3 10^3/uL (1.0-4.0); LYMPHOCYTES % (AUTO) 34 % (12-44); MEAN CORPUSCULAR HEMOGLOBIN 30 pg (25-34); MEAN CORPUSCULAR HGB CONC 34 g/dL (32-36); MEAN CORPUSCULAR VOLUME 89 fL (80-99); MEAN PLATELET VOLUME 9.7 fL (9.0-12.2); MONOCYTES # (AUTO) 0.6 10^3/uL (0.0-1.0); MONOCYTES % (AUTO) 9 % (0-12); NEUTROPHILS # (AUTO) 3.7 10^3/uL (1.8-7.8); NEUTROPHILS % (AUTO) 55 % (42-75); PLATELET COUNT 285 10^3/uL (130-400); WHITE BLOOD COUNT 6.8 10^3/uL (4.3-11.0)
--- NOTE | 2022-11-22 22:51 | ED Chest Pain ---
General Chief Complaint: Chest Pain Stated Complaint: CHEST PAIN Source: patient History of Present Illness Date Seen by Provider: Nov 22, 2022 Time Seen by Provider: 22:35 Initial Comments PT ARRIVES VIA POV FROM HOME PT C/O CHEST PAIN PAIN IS IN CENTER OF CHEST, AND RADIATES TO NECK AND JAW PAIN BEGAN TONIGHT AROUND 1730 RIGHT AFTER EATING DINNER, PAIN LASTS 30 MINUTES TO 1 HOUR, GOES AWAY AND COMES BACK. HAS HAPPENED 4 TIMES TONIGHT. RATES PAIN 6/10 AT MOST, IS NOT CURRENTLY HAVING PAIN + SHORTNESS OF BREATH WITH PAIN NO SWEATS NO NAUSEA/VOMITING NO SWELLING IN LEGS/ FEET OR PAIN IN CALVES HE HAS BEEN HAVING CHEST PAIN DAILY SINCE Monday11/19/22, AND IS GETTING WORSE, AND OCCURRING MORE OFTEN HAS HISTORY OF CAD AND HAS STENT X 1 PL[address]ED IN [address] BEE THIS MORNING FOR THIS PROBLEM AND IS SCHEDULED TO HAVE A CARDIAC CATH IN THE MORNING. PT DOES NOT HAVE HOME NTG. PT HAS HAD ASPIRIN TODAY, THIS AM. PT IS NOT ON ANY OTHER BLOOD THINNERS HE HAS HISTORY OF HTN, HYPERLIPIDEMIA AND IDDM--HAS INSULIN PUMP AND CGM. BLOOD GLUCOSE WAS 280 AT HOME, GAVE BOLUS OF INSULIN ( UNKNOWN AMOUNT--IS HI OGRAMMED INTO THE PUMP FOR A SLIDING SCALE) AND GLUCOSE IS 315 NOW. NO FEVER OR RECENT ILLNESS PT HAS HAD COVID-19 VACCINE X 3, AND FLU VACCINE FOR THIS SEASON PT STILL SMOKES, WAS SMOKING 1/2 PPD, NOW IS SMOKING LESS THAN THAT RARE ETOH USE Allergies and Home Medications Allergies Coded Allergies: NKANo Known Allergies (Unverified Allergy, Mild, 05/27/09) Patient Home Medication List Home Medication List Reviewed: Yes Aspirin (Aspirin EC) 81 Mg Leonora., 81 MG PO DAILY Prescribed by: MAITE BEE on 08/16/20 1051 Atorvastatin Calcium (Atorvastatin Calcium) 80 Mg Tablet, 80 MG PO DAILY, (Reported) Entered as Reported by: ABIMBOLA SILVESTRE on 09/27/16 1242 Insulin Lispro (Humalog) 100 Unit/1 Ml Vial, UNITS SC UD, (Reported) Entered as Reported by: ANKITA BONILLA on 06/15/20 1305 Levothyroxine Sodium (Levothyroxine Sodium) 50 Mcg Tablet, 50 MCG PO DAILY, (Reported) Entered as Reported by: ABIMBOLA SILVESTRE on 09/27/16 1242 Metoprolol Succinate (Metoprolol Succinate) 25 Mg Tab.er.24h, 25 MG PO DAILY Prescribed by: MAITE BEE on 08/16/20 1051 Quinapril HCl (Quinapril HCl) 20 Mg Tablet, 20 MG PO DAILY, (Reported) Entered as Reported by: ANKITA BONILLA on 06/15/20 1305 Ticagrelor (Brilinta) 90 Mg Tablet, 90 MG PO BID Prescribed by: MAITE BEE on 08/16/20 1051 Trazodone HCl (Trazodone HCl) 150 Mg Tablet, 150 MG PO HS, (Reported) Entered as Reported by: ANKITA BONILLA on 06/15/20 1305 Venlafaxine HCl (Effexor Xr) 150 Mg Cap.er.24h, 150 MG PO DAILY, (Reported) Entered as Reported by: ABIMBOLA SILVESTRE on 09/27/16 1242 Review of Systems Review of Systems Constitutional: no symptoms reported EENTM: See HPI Respiratory: See HPI, Shortness of Air Cardiovascular: See HPI, Chest Pain; Denies Edema Gastrointestinal: No Symptoms Reported Genitourinary: No Symptoms Reported Musculoskeletal: see HPI Skin: no symptoms reported Psychiatric/Neurological: No Symptoms Reported Endocrine: See HPI Hematologic/Lymphatic: No Symptoms Reported Past Ztcodnx-Macjvt-Fdqvck Hx Patient Social History Tobacco Use?: Yes Tobacco type used: Cigarettes Smoking Status: Current Everyday Smoker Substance use?: No Alcohol Use?: Yes Alcohol Frequency: Rarely Immunizations Up To Date Tetanus Booster (TDap): More than 5yrs PED Vaccines UTD: Yes Seasonal Allergies Seasonal Allergies: No Past Medical History Surgeries: Yes (STENT X 1 07/2020; RIGHT FOOT ABSCESS I&D 05/2020) Cardiac, Coronary Stent, Orthopedic Respiratory: No Cardiac: Yes (STEMI WITH STENT X 1 08/15/2020) Coronary Artery Disease, Heart Attack, High Cholesterol, Hypertension Neurological: No Reproductive Disorders: No Genitourinary: Yes Kidney Stones Gastrointestinal: No Musculoskeletal: Yes (TOES ON RIGHT FOOT) Fractures Endocrine: Yes (INSULIN PUMP + CGM) Diabetes, Insulin dep, Hypothyroidsim HEENT: No Cancer: No Psychosocial: Yes Depression Integumentary: Yes (SEBACEOUS CYST REMOVAL LEFT SCAPULA 09/2016) Blood Disorders: No Family Medical History Patient reports no known family medical history. No Pertinent Family Hx PAST SURGICAL HISTORY: -REMOVAL OF SEBACEOUS CYST LEFT SCAPULA 09/[address] ZURITA - RIGHT FOOT ABSCESS I&D 05/[address] WYNNE -CARDIAC CATH 08/15/[address] BEE: CONCLUSION: 1. Acute ST elevation myocardial infarction with total occlusion of the right coronary artery successful stenting using Zions Deborah 2.75 x 15 mm stent in the midright coronary artery expanded to 3.1 mm with excellent results 2. Mild irregularity in the left system nonobstructive disease 3. Normal left ventricular size, systolic function is preserved estimated ejection fraction 50 percent 4. Door to balloon time 37 minutes DISCUSSION AND RECOMMENDATION: Patient was loaded with aspirin and Brilinta, started on Toprol, lisinopril and Lipitor. Physical Exam Vital Signs Vital Signs - First Documented 11/22/22 22:36 Temp 36.2 Pulse 76 Resp 16 B/P (MAP) 139/72 (94) Pulse Ox 97 O2 Delivery Room Air Capillary Refill : Height, Weight, BMI Height: 6'1.00" Weight: 245lbs. 6.0oz. 111.429932cu; 33.00 BMI Method: General Appearance: No Apparent Distress, WD/WN Neck: Full Range of Motion, Normal Inspection, Non Tender, Supple; No Carotid Bruit, No JVD Respiratory: Chest Non Tender, Normal Breath Sounds, No Accessory Muscle Use, No Respiratory Distress Cardiovascular: Regular Rate, Rhythm, No Edema, No JVD, No Murmur, Normal Peripheral Pulses Gastrointestinal: Non Tender, Soft Extremity: Normal Capillary Refill, Normal Inspection, Normal Range of Motion, Non Tender, No Calf Tenderness, No Pedal Edema Neurologic/Psychiatric: Alert, Oriented x3, No Motor/Sensory Deficits, Normal 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, 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 as Tested Skin: Normal Color, Warm/Dry; No Rash Procedures/Interventions Suture Size: 4-0 Progress/Results/Core Measures Results/Orders Lab Results Laboratory Tests Test 11/22/22 22:43 Range/Units White Blood Count 6.8 4.3-11.0 10^3/uL Red Blood Count 4.64 4.30-5.52 10^6/uL Hemoglobin 14.0 13.3-17.7 g/dL Hematocrit 41 40-54 % Mean Corpuscular Volume 89 80-99 fL Mean Corpuscular Hemoglobin 30 25-34 pg Mean Corpuscular Hemoglobin Concent 34 32-36 g/dL Red Cell Distribution Width 12.9 10.0-14.5 % Platelet Count 285 130-400 10^3/uL Mean Platelet Volume 9.7 9.0-12.2 fL Immature Granulocyte % (Auto) 0 % Neutrophils (%) (Auto) 55 42-75 % Lymphocytes (%) (Auto) 34 12-44 % Monocytes (%) (Auto) 9 0-12 % Eosinophils (%) (Auto) 2 0-10 % Basophils (%) (Auto) 0 0-10 % Neutrophils # (Auto) 3.7 1.8-7.8 10^3/uL Lymphocytes # (Auto) 2.3 1.0-4.0 10^3/uL Monocytes # (Auto) 0.6 0.0-1.0 10^3/uL Eosinophils # (Auto) 0.1 0.0-0.3 10^3/uL Basophils # (Auto) 0.0 0.0-0.1 10^3/uL Immature Granulocyte # (Auto) 0.0 0.0-0.1 10^3/uL Prothrombin Time 12.2 12.2-14.7 SEC INR Comment 0.9 0.8-1.4 Activated Partial Thromboplast Time 28 24-35 SEC D-Dimer <= 0.27 0.00-0.49 UG/ML Sodium Level 138 135-145 MMOL/L Potassium Level 3.7 3.6-5.0 MMOL/L Chloride Level 105 98-107 MMOL/L Carbon Dioxide Level 23 21-32 MMOL/L Anion Gap 10 5-14 MMOL/L Blood Urea Nitrogen 21 H 7-18 MG/DL Creatinine 1.34 H 0.60-1.30 MG/DL Estimat Glomerular Filtration Rate 62 BUN/Creatinine Ratio 16 Glucose Level 290 H 70-105 MG/DL Calcium Level 8.6 8.5-10.1 MG/DL Corrected Calcium 9.0 8.5-10.1 MG/DL Magnesium Level 1.8 1.6-2.4 MG/DL Total Bilirubin 0.3 0.1-1.0 MG/DL Aspartate Amino Transf (AST/SGOT) 14 5-34 U/L Alanine Aminotransferase (ALT/SGPT) 20 0-55 U/L Alkaline Phosphatase 96 40-136 U/L Total Creatine Kinase 263 H 30-200 U/L Creatine Kinase MB 3.0 <6.6 NG/ML Myoglobin 61.0 10.0-92.0 NG/ML Troponin I 0.218 H <0.028 NG/ML B-Type Natriuretic Peptide 61.3 <100.0 PG/ML Total Protein 6.2 L 6.4-8.2 GM/DL Albumin 3.5 3.2-4.5 GM/DL Amylase Level 56 25-125 U/L Lipase 85 H 8-78 U/L My Orders Orders - NELIA LEOS DO Ekg-Prn For Chest Pain Or Rhyt (11/22/22 22:35) Chest 1 View, Ap/Pa Only (11/22/22 22:35) Ekg Tracing (11/22/22 22:35) Cbc With Automated Diff (11/22/22 22:35) Magnesium (11/22/22 22:35) Comprehensive Metabolic Panel (11/22/22 22:35) Myoglobin Serum (11/22/22 22:35) Protime With Inr (11/22/22 22:35) Partial Thromboplastin Time (11/22/22 22:35) Creatine Kinase (11/22/22 22:35) Creatine Kinase Mb (11/22/22 22:35) Lipase (11/22/22 22:35) Amylase (11/22/22 22:35) Nitrobid Oint 1 Inch Topical (11/22/22 22:35) Bnp Baudilio (11/22/22 22:35) Aspirin Chewable Tablet (Baby Aspirin Ch (11/22/22 22:45) Fibrin Degradation Products (11/22/22 22:35) Troponin I Baudilio (11/22/22 22:35) O2 (11/22/22 22:35) Monitor-Rhythm Ecg Trace Only (11/22/22 22:35) Ed Iv/Invasive Line Start (11/22/22 22:35) Ekg Tracing (11/22/22 22:59) Morphine Injection (Morphine Injection (11/22/22 22:59) Medications Given in ED Vital Signs/I&O 11/22/22 11/22/22 22:36 22:36 Temp 36.2 Pulse 76 Resp 16 B/P (MAP) 139/72 (94) Pulse Ox 97 O2 Delivery Room Air Room Air Progress Progress Note : Progress Note GIVEN ASPIRIN AND NITROPASTE 1069--C/O CHEST PAIN, RATES 4/10-REPEAT EKG DONE AND MORPHINE ORDERED--STATES PAIN WAS ALREADY STARTING TO EASE AND IS GONE, BEFORE MORPHINE WAS GIVEN, SO MORPHINE HELD. UNEVENTFUL ER STAY VITALS STABLE PT IS SYMPTOM-FREE AT TIME OF ADMIT. Initial ECG Impression Date: Nov 22, 2022 Initial ECG Impression Time: 22:40 Initial ECG Rate: 71 Initial ECG Rhythm: Normal Sinus EKG : EKG Time: 23:00 Rate: 64 Rhythm: Normal Sinus ECG Comparisson: Unchanged Diagnostic Imaging Comments CXR--NO ACUTE PROCESS, PENDING RADIOLOGIST REVIEW Reviewed: Reviewed by Me CP/AMI: Aspirin, ECG, Nitrates Departure Communication (Admissions) 8500--SPOKE WITH DR. BEE, MD OPHTHALMOLOGIST, ACCEPTS PT FOR ADMIT. Impression Primary Impression: NSTEMI (non-ST elevated myocardial infarction) Additional Impression: Diabetes mellitus, insulin dependent (IDDM), uncontrolled Disposition: ADMITTED INPATIENT Condition: Stable Admissions Decision to Admit Reason: Admit from ER (General) Decision to Admit/Date: Nov 22, 2022 Time/Decision to Admit Time: 23:30 Departure-Patient Inst. Referrals: FRANKIE ALBRIGHT DO (PCP/Family) Primary Care Physician NELIA LEOS DO Nov 22, 2022 22:51
[2022-11-22] MEDS: morphine INJ 10 MG/ML 1ML (SYR OR VIAL) IVP STA ×2 (23:00→23:03)
[2022-11-22 23:06] LABS: INR 0.9 (0.8-1.4); PROTHROMBIN TIME PATIENT 12.2 SEC (12.2-14.7)
[2022-11-22 23:18] LABS: ALBUMIN 3.5 GM/DL (3.2-4.5); BILIRUBIN,TOTAL 0.3 MG/DL (0.1-1.0); CALCIUM 8.6 MG/DL (8.5-10.1); CREATININE SERUM 1.34 MG/DL (0.60-1.30); MAGNESIUM 1.8 MG/DL (1.6-2.4); POTASSIUM 3.7 MMOL/L (3.6-5.0); TOTAL PROTEIN 6.2 GM/DL (6.4-8.2)
[2022-11-22] MEDS ORDERED: ENOXAPARIN 100 MG/1 ML (LOVENOX) SYR SC ONE (23:45)
[2022-11-23 01:30] VITALS: BP 140/67
[2022-11-23] MEDS ORDERED: NS IV 1000 ML 1,000 ML ONE (01:56)
[2022-11-23] MEDS ORDERED: NS IV 500 ML 500 ML IV PRN (02:00)
[2022-11-23] MEDS ORDERED: ONDANSETRON 4 MG/2 ML (SDV) Z0FRAN IVP PRN (02:15)
[2022-11-23] MEDS ORDERED: morphine INJ 4 MG/ML 1 ML (VIAL/SYRINGE) IV PRN (02:15)
[2022-11-23] MEDS: NS IV 1000 ML 1,000 ML IV SCH ×5 (02:44→23:15)
[2022-11-23] MEDS: POTASSIUM CL 10MEQ/50ML IVPB 50 ML IV SCH (05:52)
[2022-11-23] MEDS: inSUlin ASPART (NovoLOG) 1 UNIT/0.01 ML (CHARGE PER UNIT) SC SCH ×4 (05:52→23:26)
[2022-11-23] MEDS: MAGNESIUM 1 GM/100 ML IVPB 100 ML IV SCH (05:53)
[2022-11-23] MEDS: KCL 20 MEQ TAB (K-DUR) PO SCH (05:53)
[2022-11-23] MEDS: NITROGLYCERIN 2% OINT 1 GM UNIT DOSE PACKET TOP SCH ×4 (06:23→23:26)
--- NOTE | 2022-11-23 07:18 | Diagnostic Imaging Report ---
EXAMINATION: Chest 1 view HISTORY: Chest pain. COMPARISON: None available. FINDINGS: The lung volumes are normal. No focal consolidation is seen. No large pleural effusion or pneumothorax is seen. The cardiomediastinal silhouette is normal in size and contour. No acute osseous abnormality is seen. IMPRESSION: 1. No acute pleuroparenchymal process. Dictated by: Dictated on workstation # [id number]
[2022-11-23] MEDS: ASPIRIN E.C. 81 MG (ECOTRIN) TAB PO SCH (08:51)
[2022-11-23] MEDS: ENOXAPARIN 100 MG/1 ML (LOVENOX) SYR SC SCH ×2 (08:53→20:14)
[2022-11-23] MEDS ORDERED: HEParin 1000 UNIT/ML (10ML VIAL) FOR BOLUS ONE (12:06)
[2022-11-23] MEDS ORDERED: HEParin (CATH LAB) 2,000 ML IV ONE (12:06)
[2022-11-23] MEDS ORDERED: fentaNYL INJ 100 MCG/2 ML AMP ONE (12:06)
[2022-11-23] MEDS ORDERED: VERAPAMIL 5 MG/2 ML (CALAN) VIAL IV ONE (12:06)
[2022-11-23] MEDS ORDERED: NITRO DRIP 25000 MCG/D5W 250 ML IV ONE (12:06)
[2022-11-23] MEDS ORDERED: MIDAZOLAM 5 MG/5 ML (VERSED) VIAL ONE (12:06)
[2022-11-23] MEDS ORDERED: LIDOCAINE 1% INJ 30 ML (XYLOCAINE) VIAL ONE (12:06)
--- NOTE | 2022-11-23 12:12 | Cardiology History & Physical ---
HPI-Cardiology Cardiology Consultation Date of Consultation 11/23/22 Date of Admission Time Seen by Provider: 09:05 Indication: NSTEMI HPI Patient is a 57 y/o male with history of CAD, HTN, HLP, DM. Presented to the office yesterday with complaints of increasing episodes of chest pain over the last several weeks. Was scheduled for outpatient LHC today. Patient began having episodes of chest pain last night and proceeded to the ER. Workup done in ER showing elevated troponin, NSTEMI. Denies any active chest pain at this time. Currently wearing nitro patch. PMH-Cardiology Immunizations Up To Date Tetanus Booster (DTap): More than 5yrs Date of Pneumonia Vaccine: Oct 27, 2011 Date of Influenza Vaccine: Aug 27, 2016 Seasonal Allergies Seasonal Allergies: No Surgeries Yes (STENT X 1 07/2020; RIGHT FOOT ABSCESS I&D 05/2020) Respiratory No Cardiovascular Yes (STEMI WITH STENT X 1 08/15/2020) Neurological No Reproductive System Hx Reproductive Disorders: No Genitourinary Yes Kidney Stones Gastrointestinal No Musculoskeletal Yes (TOES ON RIGHT FOOT) Fractures Endocrine Yes (INSULIN PUMP + CGM) Diabetes, Insulin dep, Hypothyroidsim HEENT No Cancer No Psychosocial Yes Depression Integumentary Yes (SEBACEOUS CYST REMOVAL LEFT SCAPULA 09/2016) Blood Transfusions No Social History Patient Social History Marrital Status: Employed/Student: employed Smoking: Never smoker Have you traveled recently?: Yes Where was recent travel?: [place] 3 weeks ago Alcohol Use?: Yes Family Hx Significant Family History: No Pertinent Family Hx Family History: Patient reports no known family medical history. ROS-Cardiology Review of Systems General: No Chills, No Night Sweats, No Fatigue, No Malaise, No Appetite, No Other Pulmonary: Dyspnea Cardiovascular: Chest Pain Home Medications & Allergies Allergies: Coded Allergies: NKANo Known Allergies (Unverified Allergy, Mild, 05/27/09) Home Medication List Reviewed: Yes Exam-Cardiology Vital Signs Vital Signs Date Time Temp Pulse Resp B/P (MAP) Pulse Ox O2 Delivery O2 Flow Rate FiO2 11/23/22 11:00 65 19 129/70 (89) Room Air 11/23/22 08:00 98 11/23/22 07:42 36.1 Exam General Appearance: Alert, Oriented X3 HEENT: Atraumatic, PERRLA Respiratory: Clear to Auscultation, Normal Air Movement Cardiovascular: Regular Rate, Normal S1, Normal S2, No Murmurs Abdominal: Normal Bowel Sounds, Soft, No Tenderness, No Hepatosplenomegaly, No Masses Extremities: No Clubbing, No Cyanosis, No Edema, Normal Pulses, No Tenderness/Swelling Neuro: Normal Gait, Normal Speech, Strength at 5/5 X4 Ext, Normal Tone, Sensation Intact Psych/Mental Status: Mental Status NL, Mood NL Results Labs Labs Laboratory Tests 11/22/22 22:43: White Blood Count 6.8, Red Blood Count 4.64, Hemoglobin 14.0, Hematocrit 41, Mean Corpuscular Volume 89, Mean Corpuscular Hemoglobin 30, Mean Corpuscular Hemoglobin Concent 34, Red Cell Distribution Width 12.9, Platelet Count 285, Mean Platelet Volume 9.7, Immature Granulocyte % (Auto) 0, Neutrophils (%) (Auto) 55, Lymphocytes (%) (Auto) 34, Monocytes (%) (Auto) 9, Eosinophils (%) (Auto) 2, Basophils (%) (Auto) 0, Neutrophils # (Auto) 3.7, Lymphocytes # (Auto) 2.3, Monocytes # (Auto) 0.6, Eosinophils # (Auto) 0.1, Basophils # (Auto) 0.0, Immature Granulocyte # (Auto) 0.0, Prothrombin Time 12.2, INR Comment 0.9, Activated Partial Thromboplast Time 28, D-Dimer <= 0.27, Sodium Level 138, Potassium Level 3.7, Chloride Level 105, Carbon Dioxide Level 23, Anion Gap 10, Blood Urea Nitrogen 21H, Creatinine 1.34H, Estimat Glomerular Filtration Rate 62, BUN/Creatinine Ratio 16, Glucose Level 290H, Calcium Level 8.6, Corrected Calcium 9.0, Magnesium Level 1.8, Total Bilirubin 0.3, Aspartate Amino Transf (AST/SGOT) 14, Alanine Aminotransferase (ALT/SGPT) 20, Alkaline Phosphatase 96, Total Creatine Kinase 263H, Creatine Kinase MB 3.0, Myoglobin 61.0, Troponin I 0.218H, B-Type Natriuretic Peptide 61.3, Total Protein 6.2L, Albumin 3.5, Amylase Level 56, Lipase 85H 11/23/22 03:11: Troponin I 0.259H, Triglycerides Level 67, Cholesterol Level 128, LDL Cholesterol Direct 65, VLDL Cholesterol 13, HDL Cholesterol 53 11/23/22 05:46: Glucometer 147H A/P-Cardiology Admission Diagnosis NSTEMI Chest pain CAD HTN Admission Status: Inpatient Order (span 2 midnights) Reason for Inpatient Admission: Acute myocardial infarction Assessment/Plan NSTEMI, has been having chest pain on exertion, worsening recently, reporting episode of dull achiness in the chest with exertion relieved by rest. Patient has elevated troponin x 2, will proceed with [facility]. Coronary artery disease status post emergency cardiac catheterization July 2020 with stenting of the right coronary artery using Deborah 2.75 x 15 mm expanded to 3.1 mm with excellent results, mild disease in the LAD and circumflex artery, nonobstructive disease, normal LV function. Stress test done August 2021 showed no ischemia or infarct. Was able to exercise for 9 minutes on Alejandro protocol, had extracardiac attenuation with right arm down during imaging affecting the quality of the images with mild decrease uptake involving the mid to apical anterior wall with subtle reversibility. Stress score 3, SDS 3, ejection fraction 65% 2D Echo done August 2021 with normal LV size, EF 55-60%. PA 20mmHg. Hypertension, had some orthostatic dizziness, reporting improvement. No further episodes of dizziness or syncope. Hyperlipidemia, maintained on Lipitor 40mg daily. Lipid profile was done on November 23, 2022 with total cholesterol 128, triglyceride 67, LDL 65, HDL 53. Continue to monitor Diabetes mellitus, followed and managed by primary care physician Hypothyroidism, followed and managed by primary care physician Nonobstructive carotid artery stenosis, ultrasound done in October 2022. Depression, followed by primary care physician BMI 28, patient has lost significant weight. This is Berta Henry PA-C, as a scribe for Dr. Delarosa. Patient was seen and evaluated with Berta, I interviewed and examined the patient, agree with the current plan, discussed the management plan and agree with the scribe note. Discussed the patient medication, will restart aspirin and Brilinta Balloon angioplasty and stenting to the right coronary artery was done using 2.75 x 12 mm expanded to 3.5 mm after doing intravascular ultrasound Clinical Quality Measures AMI/AHF: ASA po Prior to arrival: Yes BERTA QUINTEROS Nov 23, 2022 12:12 MAITE DELAROSA MD Nov 23, 2022 13:06
--- NOTE | 2022-11-23 12:13 | Cardiac Procedure Note-CS/ASA ---
Pre-Procedure Note Pre-Op Procedure Note Date of Available H&P: Nov 23, 2022 Date H&P Reviewed: Nov 23, 2022 Time H&P Reviewed: 12:12 History & Physical: H&P Reviewed, Patient Examed, No changes noted Pre-Operative Diagnosis: NSTMI Conscious Sedation Pre-Proced Time 12:13 ASA Score 3 For ASA 3 and 4: Consider anesthesia and medical clearance. Also, for patients with a history of failed moderate sedation consider anesthesia. Airway Lungs Heart ASA score ASA 1: a normal healthy patient ASA 2: a patient with a mild systemic disease (mid diabetes, controlled hypertension, obesity ASA 3: a patient with a severe systemic disease that limits activity (angina, COPD, prior Myocardial infarction) ASA 4: a patient with an incapacitating disease that is a constant threat to life (CHF, renal failure) ASA 5: a moribund patient not expected to survive 24 hrs. (ruptured aneurysm) ASA 6: a declared brain- patient whose organs are being harvested. For emergent operations, add the letter E after the classification Mallampati Classification Grade 3 Sedation Plan Analgesia, Amnesia, Plan communicated to team members, Discussed options with patient/fam, Discussed risks with patient/fam The patient is an appropriate candidate to undergo the planned procedure, sedation, and anesthesia. The patient immediately re-assessed prior to indication. MAITE BEE MD Nov 23, 2022 12:13
[2022-11-23] MEDS ORDERED: ASPIRIN 325 MG (5 GR) TABLET ONE (12:58)
[2022-11-23] MEDS ORDERED: TICAGRELOR 90 MG TABLET (BRILINTA) PO ONE (12:58)
[2022-11-23] MEDS ORDERED: PATIENT MAY USE OWN MEDS, ALL PO SCH (13:15)
--- NOTE | 2022-11-23 13:15 | Cardiac Cath Report ---
Cardiac Cath Report Physician (s)/Shear Assembler (s) Physician MAITE BEE MD Pre-Procedure Diagnosis Pre-Procedure Diagnosis: NSTMI Post-Procedure Note Procedure Start Date: Nov 23, 2022 Name of Procedure: Left heart catheterization IVUS to the right coronary artery Balloon angioplasty and stenting to the right coronary artery Findings/Procedure Note PROCEDURE NOTE: 57-year-old gentleman with history of coronary artery disease myocardial infarction in 2019, had a stent to the mid right coronary artery, had an abnormal stress test and he was scheduled for cardiac catheterization. Started to have active chest pain and came into the emergency room noted to have elevation in troponin. Decision was made to proceed with cardiac catheterization. After explaining the procedure to the patient, all pros and cons were explained, all questions were answered. The patient signed the consent and then he was placed in the cardiac catheterization laboratory. Groin was prepped in SL fashion local anesthesia was used. Sheath placed in the right radial artery, Zortman catheter was advanced to the left ventricular cavity pressure was measured, pullback LV to aorta was done., engaged the right and left coronary system, angiogram was done. Patient has 95% stenosis in the mid right coronary artery within the stent and proximal to the stent that was placed in 2019. A total of 6000 units of heparin were given, AL-1 guide was used, BMW wire was advanced and parked distally. Predilatation with 3 x 20 mm balloon was done then I proceeded with deployment of shiva point Deborah 3 x 12 mm proximal to the old stent. Ultrasound post stent deployment was done subsequently I realize that the artery is significantly bigger. I proceeded with noncompliant balloon 3.5 x 25 mm under 14 dina with multiple inflation, Repeat intravascular ultrasound was done and I was satisfied with the results. At the end of the procedure the sheath was removed. Vascular band was used FINDINGS: Hemodynamics LV 115/7, end-diastolic pressure of 7 Aorta 104/54 mean of 77 ANATOMY: Left Main is free of obstructive disease Left Anterior Descending has 20% stenosis nonobstructive disease Left Circumflex has no significant obstructive disease Right Coronary Artery is a dominant artery with 95% stenosis in the midportion extending in the proximal portion of the previously placed stent. Successful balloon angioplasty then deployment of shiva point stent 3 x 12 mm overlapping proximally with the previous stent, both stents were postdilated to 3.5 mm using noncompliant balloon Intravascular ultrasound was done at the end of the procedure with good results. Residual stenosis 0%, MARU flow preintervention was 2 and post intervention was 3. LV Gram was not done, pressure was measured PERCUTANEOUS INTERVENTION: Pre stenosis 95% Post Stenosis 0% Pre MARU flow 2 Post MARU flow 3 Dominance right coronary artery CONCLUSION: 1. 95% stenosis in the mid right coronary artery within a stent was placed in 2019, successful balloon angioplasty then stenting and using IVUS post deployment of 3 x 12 mm post dilating both stent to 3.5 mm with 0% residual stenosis 2. Mild disease in the LAD nonobstructive disease 3. Normal left ventricular end-diastolic pressure DISCUSSION AND RECOMMENDATION: Patient was started back on aspirin and Brilinta, continue to maximize medical therapy Anesthesia Type: Conscious Sedation Estimated blood loss (mL): 20 ml Contrast Amount: 70 ml Total Radiation Dose: 711 mGy Post-Procedure Diagnosis Post-operative diagnosis: Non-ST elevation myocardial infarction Coronary artery disease Hypertension Hyperlipidemia MAITE BEE MD Nov 23, 2022 13:15
[2022-11-23] MEDS: TICAGRELOR 90 MG TABLET (BRILINTA) PO SCH (20:13)
[2022-11-24] MEDS: NS IV 1000 ML 1,000 ML IV SCH (03:30)
[2022-11-24] MEDS: MAGNESIUM 1 GM/100 ML IVPB 100 ML IV SCH (06:00)
[2022-11-24] MEDS: inSUlin ASPART (NovoLOG) 1 UNIT/0.01 ML (CHARGE PER UNIT) SC SCH (06:00)
--- NOTE | 2022-11-24 06:04 | Discharge Inst-Post CATH ---
Discharge Inst-CATH/EP Problems Reviewed?: Yes Post Cardiac Cath/EP D/C Inst Follow Up/Plan Appointment with Dr Delarosa in 2-4 weeks <b>CARDIAC CATH/EP PROCEDURE DISCHARGE INSTRUCTIONS</b> ACTIVITY * Go Home directly and rest. * Limit activity of the leg (or wrist if it was used) for 7 days including aerob ics, swimming, jogging, bicycling, etc. * Restrict stair-climbing for 7 days if possible, if not, climb up with your non-cath leg, then bring together on the same step. * Avoid lifting, pushing, pulling or excessive movement of the affected extremity for 7 days. * Customary sexual activity may be resumed after 2 days-use caution not to use a position that strains or causes pain to the affected extremity. * No driving for 24 hours. * NO SMOKING. * Avoid straining for bowel movements for 7 days. * Gentle walking on level ground is allowed. * Returning to work will depend on the type of procedure and the results. Your doctor will discuss this with you. CALL YOUR DOCTOR FOR ANY OF THE FOLLOWING: *If bleeding from the puncture site occurs- Apply gentle pressure to site with clean cloth and call your doctor or EMS. * If a knot or lump forms under the skin, increases in size, or causes pain. * If bruising appears to be worsening or moving further down your leg instead of disappearing. * Temperature above 101 F. CARE OF YOUR GROIN INCISION; * Bruising or purple discoloration of the skin near the puncture site is common. * You may shower only, no bathtub bathing for 5 days. Be careful to avoid slipping as your leg may feel stiff. * If a closure device was used on your femoral artery, please see the attached guide regarding care of the device and your leg. * Leave dressing on FOR 24 hours. CARE OF YOUR WRIST INCISION; * Bruising or purple discoloration of the skin near the puncture site is common. * You may shower. * DO NOT submerge wrist. * Leave dressing on FOR 24 hours. MAITE DELAROSA MD Nov 24, 2022 06:04
[2022-11-24 06:20] LABS: HEMATOCRIT 44 % (40-54); HEMOGLOBIN 15.3 g/dL (13.3-17.7); MEAN CORPUSCULAR HEMOGLOBIN 30 pg (25-34); MEAN CORPUSCULAR HGB CONC 35 g/dL (32-36); MEAN CORPUSCULAR VOLUME 88 fL (80-99); MEAN PLATELET VOLUME 9.4 fL (9.0-12.2); PLATELET COUNT 249 10^3/uL (130-400); WHITE BLOOD COUNT 7.4 10^3/uL (4.3-11.0)
[2022-11-24] MEDS: NITROGLYCERIN 2% OINT 1 GM UNIT DOSE PACKET TOP SCH (06:23)
[2022-11-24 06:33] LABS: POTASSIUM 3.8 MMOL/L (3.6-5.0)
[2022-11-24 06:34] LABS: CALCIUM 8.8 MG/DL (8.5-10.1)
[2022-11-24] MEDS: POTASSIUM CL 10MEQ/50ML IVPB 50 ML IV SCH (06:36)
[2022-11-24] MEDS: KCL 20 MEQ TAB (K-DUR) PO SCH (06:36)
[2022-11-24 06:39] LABS: CREATININE SERUM 1.06 MG/DL (0.60-1.30); PHOSPHORUS 2.7 MG/DL (2.3-4.7)
[2022-11-24 06:41] LABS: MAGNESIUM 1.9 MG/DL (1.6-2.4)
[2022-11-24] MEDS ORDERED: TICA90TA PO (08:23)
--- NOTE | 2022-11-24 08:26 | Cardiology Discharge Summary ---
Discharge Summary Hospital Course Problems Reviewed?: Yes Hospital Course Date of Admission: Nov 22, 2022 at 23:30 Admission Diagnosis : Family Physician/Provider: Nikhil Pepper DO Date of Discharge: 11/24/22 Discharge Diagnosis: [Non-ST elevation myocardial infarction Coronary artery disease Hypertension Hyperlipidemia Diabetes mellitus] Hospital Course: [ NSTEMI, cardiac catheterization was done with stenting to the right coronary artery Coronary artery disease status post emergency cardiac catheterization July 2020 with stenting of the right coronary artery using Deborah 2.75 x 15 mm expanded to 3.1 mm with excellent results, mild disease in the LAD and circumflex artery, nonobstructive disease, normal LV function. Cardiac catheterization was done on November 23, 2022, severe stenosis within the stent in the right coronary artery and proximal to the stent successful balloon angioplasty then deployment of a stent proximal to the previous stent 3 oh by 12 mm both stents expanded to 3.5 mm with excellent results. Stress test done August 2021 showed no ischemia or infarct. Was able to exercise for 9 minutes on Alejandro protocol, had extracardiac attenuation with right arm down during imaging affecting the quality of the images with mild decrease uptake involving the mid to apical anterior wall with subtle reversibility. Stress score 3, SDS 3, ejection fraction 65% 2D Echo done August 2021 with normal LV size, EF 55-60%. PA 20mmHg. Hypertension, had some orthostatic dizziness, reporting improvement. No further episodes of dizziness or syncope. Hyperlipidemia, maintained on Lipitor 40mg daily. Lipid profile was done on November 23, 2022 with total cholesterol 128, triglyceride 67, LDL 65, HDL 53. Continue to monitor Diabetes mellitus, followed and managed by primary care physician Hypothyroidism, followed and managed by primary care physician Nonobstructive carotid artery stenosis, ultrasound done in October 2022. Depression, followed by primary care physician BMI 28, patient has lost significant weight.] Labs and Pending Lab Test: Microbiology 11/23/22 MRSA Screen - Final, Complete MRSA not isolated Home Meds Active Brilinta (Ticagrelor) 90 Mg Tablet 90 Mg PO BID Aspirin EC (Aspirin) 81 Mg Tablet.dr 81 Mg PO DAILY Metoprolol Succinate 25 Mg Tab.er.24h 25 Mg PO DAILY Reported Trazodone HCl 150 Mg Tablet 150 Mg PO HS Humalog (Insulin Lispro) 100 Unit/1 Ml Vial Units SC UD MDD 120 UNITS USES PER INSULIN PUMP Quinapril HCl 20 Mg Tablet 20 Mg PO DAILY Effexor Xr (Venlafaxine HCl) 150 Mg Cap.er.24h 150 Mg PO DAILY Levothyroxine Sodium 50 Mcg Tablet 50 Mcg PO DAILY Atorvastatin Calcium 80 Mg Tablet 80 Mg PO DAILY Assessment/Pt DC Instructions started on Brilinmynor Appointment with Dr Delarosa Discharge Diet: Cardiac Diet Activity as Tolerated: Yes Discharge Physical Examination Allergies: Coded Allergies: NKANo Known Allergies (Unverified Allergy, Mild, 05/27/09) General Appearance: No Apparent Distress, WD/WN HEENT: PERRL/EOMI, TMs Normal, Normal ENT Inspection, Pharynx Normal Respiratory: Chest Non Tender, Lungs Clear, Normal Breath Sounds, No Accessory Muscle Use, No Respiratory Distress Cardiovascular: Regular Rate, Rhythm, No Edema, No Gallop, No JVD, No Murmur, Normal Peripheral Pulses Gastrointestinal: Normal Bowel Sounds, No Organomegaly, No Pulsatile Mass, Non Tender, Soft Extremity: Normal Capillary Refill, Normal Inspection, Normal Range of Motion, Non Tender, No Calf Tenderness, No Pedal Edema Skin: Normal Color, Warm/Dry Neurologic/Psychiatric: Alert, Oriented x3, No Motor/Sensory Deficits Clinical Quality Measures Admission Status Admission Status: Inpatient Order (span 2 midnights) Reason for Inpatient Admission: Non-ST elevation myocardial infarction AMI/AHF: ASA po Prior to arrival: Yes MAITE DELAROSA MD Nov 24, 2022 08:26
[2022-11-24] MEDS: TICAGRELOR 90 MG TABLET (BRILINTA) PO SCH (08:37)
[2022-11-24] MEDS: ASPIRIN E.C. 81 MG (ECOTRIN) TAB PO SCH (08:37)
[2022-11-24] MEDS ORDERED: ASPIRIN E.C. 81 MG (ECOTRIN) TAB PO SCH (09:00)
== END 2022-11-24 08:44 | disposition home or self-care (01) | DRG 246 ==
LOC: EDUNIT# 22:32 → ER 22:34 → ICU 23:30
PROVIDERS: ADMIT Internal Medicine Cardiovascular Disease; ATTEND Internal Medicine Cardiovascular Disease
PROC: 027034Z Dilation of Coronary Artery, One Artery with Drug-eluting Intraluminal Device, Percutaneous Approach (ICD-10-PCS; principal; 2022-11-23)
PROC: 4A023N7 Measurement of Cardiac Sampling and Pressure, Left Heart, Percutaneous Approach (ICD-10-PCS; 2022-11-23)
PROC: B2111ZZ Fluoroscopy of Multiple Coronary Arteries using Low Osmolar Contrast (ICD-10-PCS; 2022-11-23)
DX: T82.855A Stenosis of coronary artery stent, initial encounter (principal); I21.4 Non-ST elevation (NSTEMI) myocardial infarction; I25.10 Atherosclerotic heart disease of native coronary artery without angina pectoris; I10 Essential (primary) hypertension; E78.00 Pure hypercholesterolemia, unspecified; E11.65 Type 2 diabetes mellitus with hyperglycemia; Z79.4 Long term (current) use of insulin; F17.210 Nicotine dependence, cigarettes, uncomplicated; E03.9 Hypothyroidism, unspecified; F32.A Depression, unspecified; Z79.82 Long term (current) use of aspirin
CPT/HCPCS: 36415; 71045; 80048; 80053; 80061; 82150; 82550; 82553; 82947; 83690; 83735; 83874; 83880; 84100; 84484; 85025; 85027; 85379; 85610; 85730; 87081; 93005; 93041; 93306; 93458